=== PATIENT | male | born 1960 | race Caucasian/White ===

== ENCOUNTER → 2017-05-10 | Outpatient (CLI) | payer MEDICARE ==
[~2017-05-10] MED LIST: ACE3 PO; ACET-3017 PO; ACY200 PO; ACYC-50 PO; ACYC800T99 PO; ALP1 PO; ALPR-445 PO; ALPR-451 PO; ASMANEXPT EXT; ASPI-715 PO; ASPI81TA94 PO; AZIT-1 PO; CALC-1 PO; CALC500T42 PO; CALC600T59 PO; CEPH500C24 PO; CHOL100062 PO; CHOL200022 PO; CHOL4PAC14 PO; CHOL4PAC15 PO; CITA10SO7 PO; CLI150 PO; CLIN-60 PO; CYA1000 PO; CYAN100T25 PO; DARU800T PO; DIPH-1 PO; DON PO; DOXY-229 PO; EMTR1TAB11 PO; ERGO500029 PO; ERGO500037 PO; FENO130C6 PO; FENO145T PO; FLU100 PO; FLU45SYR25 IM ONLY; FLUC100T35 PO; GLUC-198 PO; HYOS-24 SL; LACT1CAP6 PO; LANI SC; LEV500P PO; LOPE-84 PO; LOPE-88 PO; LOPE2CAP88 PO; MEG40 PO; METF-409 PO; METR-160 PO; MOME45CR2 TP; MOME45OI2 TP; MULT-885 PO; NAPR-1043 PO; NIA500 PO; OMEP-153 PO; ONDA4TAB PO; POLY10DR20 OP; POTA-28 PO; PREN1TAB85 PO; PRO25 PO; PROM-110 PO; RITO100C7 PO; TACR100O6 TP; TRUPT PO; VAL500 PO; VANC1VIA12 PO; VARD10TA20 PO; ZOSTRIX TP; [UNRECOGNIZED DRUG - CODE] MC; [UNRECOGNIZED DRUG - CODE] MC; [UNRECOGNIZED DRUG - CODE] PO; [UNRECOGNIZED DRUG - CODE] PO; [UNRECOGNIZED DRUG - CODE] PO; [UNRECOGNIZED DRUG - CODE] PO; [UNRECOGNIZED DRUG - CODE] PO; [UNRECOGNIZED DRUG - CODE] PO; [UNRECOGNIZED DRUG - CODE] PO; [UNRECOGNIZED DRUG - CODE] PO; [UNRECOGNIZED DRUG - CODE] TD; [UNRECOGNIZED DRUG - CODE] TOP; [UNRECOGNIZED DRUG - OTHER] NS; [UNRECOGNIZED DRUG - OTHER] PO; megastrol PO
== END ==
LOC: LAB 15:00
PROVIDERS: ATTEND Internal Medicine
DX: A04.72 Enterocolitis due to Clostridium difficile, not specified as recurrent (principal)
CPT/HCPCS: 87324; 87449

== ENCOUNTER 2017-05-19 13:31 | Emergency (ER) | payer MEDICARE ==
[~2017-05-19] VITALS: Ht 175.3 cm; Wt 64.0 kg
[2017-05-19] MEDS ORDERED: IOPAMIDOL 76% 75 ML INFUS BTL 75 ML ONE (14:46)
--- NOTE | 2017-05-19 15:14 | RADIOLOGY IMAGING REPORT ---
FACILITY: [facility] [place] PATIENT NAME: Emil Alcantara : 1960 MR: [id number] V: [id number] EXAM DATE: ORDERING PHYSICIAN: CHACHO HENDERSON TECHNOLOGIST: Location: [facility] Patient: Emil Alcantara : 1960 Visit/Account:[id number] Date of Sevice: 05/19/2017 EXAMINATION: Chest 2 Views HISTORY: Jaundice. HIV positive. COMPARISON: 06/16/2012. FINDINGS: The lungs are clear. No focal consolidation or pleural fluid. No pneumothorax. Normal cardiomedias tinal silhouette, with normal heart size and pulmonary vascularity. Visualized osseous structures ar e unremarkable. IMPRESSION: Negative chest. Report Dictated By: Talat Wall MD at 05/19/2017 3:06 PM Report E-Signed By: Talat Wall MD at 05/19/2017 3:10 PM WSN:[id number]
--- NOTE | 2017-05-19 15:49 | RADIOLOGY IMAGING REPORT ---
FACILITY: [facility] PATIENT NAME: Emil Alcantara : 1960 MR: [id number] V: [id number] EXAM DATE: ORDERING PHYSICIAN: CHACHO HENDERSON TECHNOLOGIST: Location[place] [facility] [place] Patient: Emil Alcantara : 1960 Visit/Account:[id number] Date of Sevice: 05/19/2017 ABDOMEN/PELVIS WITH CONTRAST HISTORY: jaundice, HIV pos TECHNIQUE: Following administration of IV contrast contiguous axial images acquired through the abdom en/pelvis. Coronal and sagittal reformatting also performed. Dose Lowering Technique One of the following dose optimization techniques was utilized in the performance of this exam: Autom ated exposure control; adjustment of the mA and/or kV according to the patient's size; or use of an i terative reconstruction technique. Specific details can be referenced in the facility's radiology C T exam operational policy. CONTRAST: 75 mL Isovue-370 COMPARISON: July 22, 2013 FINDINGS: Visualized lung bases: In the lateral aspect right lower lobe on image one of series 5 there is an i ll-defined nodular area of airspace consolidation. This was not appreciated on the 2014 CT. In the posterior aspect of the right lower lobe on image 24 there is a 1.8 x 1 cm nodular area of a irspace consolidation also not appreciated on the prior study. . In the posterior aspect right lower lobe on image 39 there is a 1.3 x 0.9 cm focal area of nodular airspace consolidation also not appreciated on the prior study . The posterolateral right lower lobe on image 70 there is a small subtle area of subpleural consolidat ion. In the posterior aspect of the left lower lobe image 76 is a tiny subpleural area of consolidation All of these areas of consolidation abut the pleural margin Hepatobiliary: There is marked dilatation of the intra and extrahepatic biliary tree. The common he patic duct measures up to 1.8 cm., Bile duct measures 1.4 centers in diameter. The common bile duct becomes narrowed at the pancreatic head gallbladder is markedly distended distended Spleen: Negative. Adrenals: Negative. Pancreas: The pancreas appears atrophic. There is marked dilatation of the entire pancreatic duct m easuring up to 6.5 mm in diameter although becomes narrowed at the pancreatic head pancreatitis appea rs mildly heterogeneous Kidneys ureters or bladder: Bladder is mildly distended. Tiny subcentimeter hypodensity posterior as pect of the mid right kidney likely represents a cyst although is too small to characterize by CT Genitalia: There are coarse calcifications within the prostate GI: The stomach is markedly distended with particulate material. This could be related to a recent meal although clinical correlation needed to exclude a gastric outlet obstruction either functional o r mechanical although no obstructing lesion is seen Vessels/spaces/nodes: Negative. Bones/soft tissues: No aggressive appearing bone lesions are seen. There are mild spondylotic mays es lumbar spine Additional findings: None pertinent. IMPRESSION: There is severe intra and extrahepatic biliary ductal dilatation as described above including distent ion of the gallbladder. Pancreatic duct is also markedly dilated. Both the pancreatic and common bi le duct becomes narrowed at the pancreatic head. The pancreatic head appears heterogeneous. MRCP or ERCP is recommended for further evaluation. There are multiple focal ill-defined nodular areas of airspace consolidation abutting the pleural mar gins in the right lower lobe and a tiny area of consolidation in the left lower lobe. These were not present on the prior CT from 2013 and could represent an acute infectious/inflammatory process. The stomach is markedly distended with particulate material. This could be related to a recent meal although clinical correlation needed to exclude a gastric outlet obstruction either functional or mec hanical. Results were called to CHACHO HENDERSON at 05/19/2017 3:43 PM. Report Dictat d By: Eli Enriquez MD at 05/19/2017 3:17 PM Report E-Signed By: Eli Enriquez MD at 05/19/2017 3:44 PM WSN:[id number]
[2017-05-19 16:09] VITALS: BP 133/80
--- NOTE | 2017-05-19 16:32 | RADIOLOGY IMAGING REPORT ---
FACILITY: [facility] [place] PATIENT NAME: Emil Alcantara : 1960 MR: [id number] V: [id number] EXAM DATE: ORDERING PHYSICIAN: CHACHO HENDERSON TECHNOLOGIST: Location: [facility] Patient: Emil Alcantara : 1960 Visit/Account:[id number] Date of Sevice: 05/19/2017 LIVER HISTORY: Elevated liver enzymes. Jaundice. HIV-positive. COMPARISON: CT scan from same day FINDINGS: Gallbladder: Hydropic appearing gallbladder measuring 10.7 x 4.5 cm. in dimension. Small amount of de bris seen within the gallbladder. No wall thickening. No para cholecystic fluid collections. Liver: Dilated intrahepatic ducts comparable to the CT scan. Common bile duct measuring 15 mm proxima l. Common duct: Normal, 15 mm in its proximal aspect. mm diameter. Pancreas: Visualized portion the pancreas demonstrates no pancreatic mass lesion. Dilated intrahepati c ducts. Overall appearance the ultrasound comparable to the CT scan. Right kidney: 11 x 4.5 x 6.5 cm. No hydronephrosis. No cortical mass lesions. Resistive index of 0.70 Upper abdominal aorta and IVC: Patent. Ascites: None visualized. IMPRESSION: 1. Hydropic gallbladder with gallbladder debris. No acute cholecystitis change. 2. Dilated intrahepatic ducts and common bile duct. Overall appearance the ultrasound is comparable t o the CT scan. No additional information gleaned from ultrasound over CT scan. Report Dictated By: Francisco Clemens MD at 05/19/2017 4:16 PM Report E-Signed By: Francisco Clemens MD at 05/19/2017 4:28 PM WSN:[id number]
--- NOTE | 2017-05-19 16:41 | ER Report ---
History and Physical Time Seen By MD: 13:35 Hx. of Stated Complaint: PT SENT HERE FROM DR MARK'S OFFICE. HIGH BILI AND AST, ALT. PT RECENTLY TREATED FOR C-DIFF. HPI/ROS CHIEF COMPLAINT: Jaundice HISTORY OF PRESENT ILLNESS: Patient is a 56-year-old male who presents the ED with complaint of jaundice. He states that he was at work yesterday and one of his coworkers told him that he looked yellow. He states that he felt fine and was has not had any pain so he decided to wait pelvis morning to get this checked out. He states that he called his primary care office but his normal provider was gone today. He did get an appointment with Dr. Mark, who did evaluate him and did get some labs. It is noted that his bilirubin and liver enzymes were elevated. He has been completely pain-free. He has a history of HIV which is under good control. He states that his last CD4 count was above 600 and that his viral load was 0. He is on multiple medications/antivirals for his HIV. 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 He has not noted any fever. He has not had any nausea or vomiting. He has no history of any abdominal surgeries. He was told to come here by primary care for further evaluation. REVIEW OF SYSTEMS: Constitutional: No fever, no chills. Eyes: No discharge. ENT: No sore throat. Cardiovascular: No chest pain, no palpitations. Respiratory: No cough, no shortness of breath. Gastrointestinal: See history of present illness. Genitourinary: No hematuria. Musculoskeletal: No back pain. Skin: No rashes. Neurological: No headache. Allergies: Coded Allergies: diphenhydramine (Verified Allergy, Mild, hives, 05/19/17) Penicillins (Verified Allergy, Unknown, 05/19/17) lamivudine (Unverified Allergy, Unknown, HIVES, 05/19/17) shellfish derived (Unverified Allergy, Unknown, HIVES, 05/19/17) metformin (Unverified Adverse Reaction, Intermediate, GI DISTRESS, 05/19/17) Home Meds Active Scripts Diphenoxylate Hcl/Atropine (LOMOTIL TABLET) 1 Each Tablet, 1-2 TAB PO QID Y for DIARRHEA, #60 TAB 3 Refills 1 tablet po prn loose stool, maximum 8 tablets 24 hours Prov:KATELYNN MARK MD 05/19/17 Acyclovir (ACYCLOVIR) 400 Mg Tablet, 1 TAB PO BID, #120 TAB 5 Refills Prov:GUZMAN LOZA MD 05/10/17 Loperamide Hcl (LOPERAMIDE) 2 Mg Capsule, 2 CAP PO QDAY Y for diarrhea, #360 CAPSULE 2 Refills Prov:GUZMAN LOZA MD 04/26/17 Blood-Glucose Control, Low (BREEZE 2) 1 Each Each, 1 EACH MC DIRECTED, #100 10 Refills Use to test blood sugars once daily and up to TID as needed. Prov:GUZMAN LOZA MD 04/25/17 Lancets (MICROLET) 1 Each Each, 1 EACH MC DAILY, #100 3 Refills Used to check blood sugars daily. Prov:GUZMAN LOZA MD 04/19/17 Mometasone Furoate (MOMETASONE FUROATE) 45 Gm Oint...g., 1 ULISSES TP BID, #1 TUBE 3 Refills Prov:GUZMAN LOZA MD 04/13/17 Alprazolam (ALPRAZOLAM) 1 Mg Tablet, 1 TAB PO TID Y for anxiety, #90 TAB 1 Refill Prov:GUZMAN LOZA MD 03/29/17 Testosterone (TESTIM) 5 Gm Gel..gram., 1 ULISSES TD QDAY, #90 PACKET 2 Refills Prov:GUZMAN LOZA MD 11/18/16 Fenofibrate Nanocrystallized (FENOFIBRATE) 145 Mg Tablet, 1 TAB PO QDAY, #90 TAB 3 Refills Prov:GUZMAN LOZA MD 07/19/16 Cholecalciferol (Vitamin D3) (VITAMIN D) 10,000 Unit Capsule, 1 TAB PO QDAY, # 90 CAPSULE 4 Refills Prov:GUZMAN LOZA MD 06/01/16 Reported Medications Lactobacillus Combination No.4 (PROBIOTIC) 1 Each Capsule, 1 CAP PO QDAY, CAPSULE 05/27/15 Multivitamin (DAILY VITAMIN) 1 Each Tablet, 1 TAB PO QDAY 05/23/14 Cyanocobalamin (Vitamin B-12) (VITAMIN B-12) 1,000 Mcg Tablet, 1 TAB PO QDAY 05/23/14 Glucosa Cao 2KCL/Chondroitin Cao (GLUCOSAMINE & CHONDROITIN CAP) 1 Each Capsule, 1 CAP PO BID, CAPSULE 05/23/14 Aspirin (ASPIRIN) 81 Mg Tab.chew, 1 TAB PO QDAY, TAB.CHEW 05/23/14 Calcium Carbonate (CALTRATE 600) 600 Mg Tablet, 1 TAB PO BID 04/15/14 Darunavir Ethanolate (PREZISTA) 800 Mg Tablet, 1 TAB PO DAILY 11/23/13 Emtricitabine/Tenofovir (TRUVADA 200 MG-300 MG TABLET) 1 Each Tablet, 1 TAB PO QDAY 11/23/13 Ritonavir (NORVIR) 100 Mg Cap, 1 CAP PO DAILY, CAP 11/23/13 Vardenafil Hcl (LEVITRA) 10 Mg Tablet, 1 TAB PO QDAY Y for sexual activity, TAB 11/23/13 Discontinued Reported Medications Vancomycin Hcl 1 Gm Vial (VANCOMYCIN HCL) 1 Gm Vial, 125 MG PO DIRECTED, Liquid suspension: 125 mg qid X 14 d, bid X 7 d, qd X 7 d, qod then q 3rd day X 2-8 weeks 05/10/17 Discontinued Scripts Cholestyramine (With Sugar) (CHOLESTYRAMINE PACKET) 4 Gm Powd.pack, 1 PACKET PO BID, #60 PACKET 1 Refill Prov:GUZMAN LOZA MD 05/03/17 Cephalexin Monohydrate (CEPHALEXIN) 500 Mg Cap, 1 CAP PO BID, #4 CAP 0 Refills Prov:MARIPOSA BEAN DNP, [employer]-BC 05/13/17 Reviewed Nurses Notes: Yes Old Medical Records Reviewed: Yes Hx Smoking: No Smoking Status: Never Smoker Hx Substance Use Disorder: No Hx Alcohol Use: No Constitutional Vital Sign - Last 24 Hours 05/19/17 05/19/17 05/19/17 05/19/17 13:37 13:38 13:46 14:00 Temp 97.8 Pulse 49 52 Resp 16 B/P (MAP) 136/83 136/83 (100) 117/65 (82) Pulse Ox 96 97 O2 Delivery Room Air 05/19/17 05/19/17 05/19/17 05/19/17 14:01 14:16 14:30 14:31 Pulse 49 51 56 B/P (MAP) 136/76 (96) Pulse Ox 95 95 96 05/19/17 05/19/17 14:46 15:16 Pulse 55 58 Pulse Ox 95 99 Physical Exam General Appearance: The patient is alert, has no immediate need for airway protection and no signs of toxicity. She appears to be no acute distress. Eyes: Left IA is a prosthetic. Right eye reveals some scleral icterus. Pupils are round and reactive. ENT, Mouth: Mucous membranes are moist. Respiratory: There are no retractions, lungs are clear to auscultation. Cardiovascular: Regular rate and rhythm. Gastrointestinal: Abdomen is soft and non tender, no masses, bowel sounds normal all 4 quadrants. Skin: Jaundice is appreciated. Musculoskeletal: Neck is supple non tender. Extremities are nontender, nonswollen and have full range of motion. DIFFERENTIAL DIAGNOSIS: After history and physical exam differential diagnosis was considered for jaundice and HIV infection including infectious process, cholelithiasis, pancreatic/liver mass. Medical Decision Making Data Points Laboratory Hematology Test 05/19/17 11:32 05/19/17 14:52 Chemistry Test 05/19/17 11:32 05/19/17 14:52 Microbiology Microbiology Date/Time Source Procedure Growth Status 05/19/17 14:20 Blood Received ED Course/Re-evaluation ED Course Did obtain blood cultures, acid-fast bacteria blood cultures, acute hep panel, RUQ US and abd/pelvis CT. 05/19/2017 4:39:20 pm - distal imaging and labs with patient. It appears that he does have severe intra-and extrahepatic biliary duct dilation but no mass or stone is identified. The recommendation is for MRCP or ERCP. This patient with Dr. Virk, Hospitalist at [facility], who will accept the patient under her care. Decision to Disposition Date: May 19, 2017 Decision to Disposition Time: 16:40 Depart Departure Latest Vital Signs Vital Signs Date Time Temp Pulse Resp B/P (MAP) Pulse Ox O2 Delivery O2 Flow Rate FiO2 05/19/17 15:16 58 99 05/19/17 14:30 136/76 (96) 05/19/17 13:37 97.8 16 Room Air Impression: Primary Impression: Human immunodeficiency virus (HIV) disease Additional Impression: Jaundice Condition: Improved Disposition: XFER TO ACUTE CARE HOSPITAL Referrals: GUZMAN LOZA MD (PCP) MD Consult Note: Dr. Virk, Hospitalist at [facility] Dr. Razo, ED Problem Qualifiers CHACHO HENDERSON PA-C May 19, 2017 16:41
[2017-05-23] MEDS ORDERED: ALPR-451 PO (09:07)
== END 2017-05-19 17:10 | disposition short-term general hospital (02) ==
LOC: ER 13:37
DX: K83.8 Other specified diseases of biliary tract (principal); B20 Human immunodeficiency virus [HIV] disease; J17 Pneumonia in diseases classified elsewhere
CPT/HCPCS: 36415; 71046; 74177; 76705; 80074; 87040; 87116; 87471; 99285; Q9967

== ENCOUNTER → 2017-05-19 | Outpatient (CLI) | payer MEDICARE ==
[~2017-05-19] MED LIST changes: -FENO145T PO; +FENO145T36 PO; +SERT-184 PO
== END ==
LOC: AMB 17:02
PROVIDERS: ATTEND Nurse Practitioner
DX: K76.9 Liver disease, unspecified (principal); R17 Unspecified jaundice; Z21 Asymptomatic human immunodeficiency virus [HIV] infection status
CPT/HCPCS: A0425; A0428

== ENCOUNTER → 2017-05-19 | Outpatient (CLI) | payer MEDICARE ==
[~2017-05-19] MED LIST changes: -SERT-184 PO
[2017-05-19 11:51] LABS: PLATELET COUNT, AUTOMATED 239 K/uL (150-450)
== END ==
LOC: LAB 11:32
PROVIDERS: ATTEND Emergency Medicine
DX: B20 Human immunodeficiency virus [HIV] disease (principal); R17 Unspecified jaundice
CPT/HCPCS: 36415; 81001; 82040; 82150; 82247; 82310; 82374; 82435; 82565; 82947; 83690; 84075; 84132; 84155; 84295; 84450; 84460; 84520; 85025; 86140

== ENCOUNTER → 2017-05-25 | Outpatient (CLI) | payer MEDICARE ==
[~2017-05-25] MED LIST changes: +SERT-184 PO
[2017-05-25 16:14] LABS: PLATELET COUNT, AUTOMATED 233 K/uL (150-450)
== END ==
LOC: LAB 15:54
PROVIDERS: ATTEND Emergency Medicine
DX: R17 Unspecified jaundice (principal); R39.89 Other symptoms and signs involving the genitourinary system
CPT/HCPCS: 36415; 81001; 82040; 82247; 82310; 82374; 82435; 82565; 82947; 84075; 84132; 84155; 84295; 84450; 84460; 84520; 85025

== ENCOUNTER → 2017-07-18 | Outpatient (CLI) | payer MEDICARE ==
[~2017-07-18] MED LIST changes: +CHOL500050 PO; +CYAN25005 PO; +LIPA1CAP61 PO; +PACL6VIA IV; +PROC10TA4 PO; +SUMA20SP8 NS; +[UNRECOGNIZED DRUG - CODE] IV
== END ==
LOC: SPU 13:21
PROVIDERS: ATTEND Family Medicine
DX: B20 Human immunodeficiency virus [HIV] disease (principal)
CPT/HCPCS: 86361; 87536; 88184

== ENCOUNTER 2017-09-20 12:47 | Outpatient (RCR) | payer MEDICARE ==
[2017-06-27 12:36] VITALS: BP 100/60
[2017-06-27] MEDS: HEPARIN FLSH (PORT) 500 UN/5ML IVP PRN (14:57)
[2017-06-27] MEDS: NS(*) 0.9% 500 ML BAG 500 ML IV PRN (14:57)
[2017-06-27] MEDS: DEXAMETHASONE SOD PHOS 10MG/ML IVP PRN (15:23)
[2017-06-27] MEDS: PALONOSETRON 0.25 MG/5 ML VIAL IVP PRN (15:23)
[2017-06-27 17:33] VITALS: BP 99/65
--- NOTE | 2017-07-02 16:25 | ONCOLOGY FOLLOW UP NOTE ---
EVENT DATE: June 27, 2017 CHIEF COMPLAINT Mr. Alcantara is a pleasant 56-year-old gentleman and patient of Dr. Cotton and Dr. Tata Oseguera that presents to begin chemotherapy neoadjuvantly with Gemzar and Abraxane for pancreatic cancer that we are hopeful is resectable. HISTORY OF PRESENT ILLNESS Mr. Alcantara returns. Please see the notes by Dr. Oseguera from [facility] in [facility] for greater detail. I am meeting Mr. Alcanatra for the first time as he is beginning neoadjuvant chemotherapy. His bilirubin has improved nicely since the stent placement and we are able to give both drugs, albeit with a reduced dose of the Abraxane. The Gemzar is at an appropriate dose. He is ready to move forward with therapy. His PET scan was done recently and the lesions in the chest appear to be benign , and we will watch these closely. If they shrink considerably with chemotherapy that will raise concern that this is metastatic disease at presentation. If not then we are hopeful that we can shrink the disease and then pursue curative intense surgery. Plan to repeat imaging after two to four cycles to determine how he is responding. I reviewed his history with him in detail and answered all of his questions today. REVIEW OF SYSTEMS CONSTITUTIONAL: No fevers, chills. HEENT: No headache or vision changes. CARDIOVASCULAR: No chest pain, dyspnea on exertion or edema. RESPIRATORY: No shortness of breath, wheeze, cough. GASTROINTESTINAL: Abdominal pain controlled. Less distension. GENITOURINARY: No dysuria or hematuria. MUSCULOSKELETAL: Positive weakness. Some weight loss since his diagnosis. ENDOCRINE: No heat or cold intolerance. PSYCHIATRIC: Normal mood and affect. No anxiety or depression currently. SKIN: No concerning findings. HEMATOLOGIC/LYMPHATIC: No bruising or bleeding. The remainder of the 14-point review of systems is otherwise negative. PHYSICAL EXAMINATION VITAL SIGNS: Blood pressure 101/60, pulse 50, respiratory rate 16, temperature 96.8 Fahrenheit, oxygen saturation 94% on room air. Height 173.5, weight 59.7 kg. Pain 0/10, fatigue 0/10. GENERAL: In stable condition, resting comfortably in the chair. HEENT: Normocephalic, atraumatic. Thin and somewhat cachectic. CARDIOVASCULAR: Regular rate and rhythm. LUNGS: Clear. ABDOMEN: Soft. EXTREMITIES: No clubbing, cyanosis or significant edema. SKIN: No concerning findings. Remainder of physical exam otherwise unremarkable. IMPRESSION AND PLAN Mr. Alcantara is a pleasant 56-year-old gentleman with the followin. Pancreatic cancer. We are hopeful that this is resectable. We plan to pursue neoadjuvant chemotherapy with Gemzar and Abraxane with reduced dose of Abraxane due to the elevated bilirubin. I am very pleased that his bilirubin improved to the point where we can give a doublet of chemotherapy as opposed to single agent Gemzar. We will give two to four cycles then hopefully pursue surgery. He does have some what now appear to be benign lesions in the chest that we will follow closely as well. If these respond considerably then I would be much more concerned that they are metastatic. Discussed his case extensively with Dr. Oseguera, participated in his care conference in [place]. I answered all of his questions today. Billing: Return visit level 5. Total time 45 minutes, counseling time 25. MTDD
[2017-07-04 12:50] VITALS: BP 87/63
[2017-07-04] MEDS: NS(*) 0.9% 500 ML BAG 500 ML IV PRN (13:34)
[2017-07-04] MEDS: DEXAMETHASONE SOD PHOS 10MG/ML IVP PRN (13:34)
[2017-07-04] MEDS: HEPARIN FLSH (PORT) 500 UN/5ML IVP PRN (14:42)
[2017-07-04 14:45] VITALS: BP 96/54
[2017-07-11] MEDS: NS(*) 0.9% 500 ML BAG 500 ML IV PRN (13:40)
[2017-07-11 13:42] VITALS: BP 90/55
[2017-07-18 13:58] VITALS: BP 98/66
[2017-07-18 14:26] LABS: PLATELET COUNT, AUTOMATED 404 K/uL (150-450)
[2017-07-18] MEDS: DEXAMETHASONE SOD PHOS 10MG/ML IVP PRN (14:45)
[2017-07-18] MEDS: PALONOSETRON 0.25 MG/5 ML VIAL IVP PRN (14:45)
[2017-07-18] MEDS: NS(*) 0.9% 500 ML BAG 500 ML IV PRN (14:46)
[2017-07-18] MEDS: HEPARIN FLSH (PORT) 500 UN/5ML IVP PRN (16:05)
[2017-07-18 17:02] VITALS: BP 111/70
[2017-07-25 10:16] LABS: PLATELET COUNT, AUTOMATED 203 K/uL (150-450)
[2017-07-25 10:30] VITALS: BP 97/59
--- NOTE | 2017-07-26 20:14 | ONCOLOGY FOLLOW UP NOTE ---
EVENT DATE: July 25, 2017 CHIEF COMPLAINT/REASON FOR VISIT Mr. Alcantara is a pleasant 56-year-old gentleman with pancreatic cancer on neoadjuvant Gemzar and Abraxane, here for followup. The plan is to eventually get to resection after four cycles of therapy. HISTORY OF PRESENT ILLNESS Mr. Alcantara returns. Please see the notes from Dr. Jackson from the [facility] in [place] for greater detail. We started reduced dose Abraxane and Gemzar due to his need for HIV medication. He developed excessive myelosuppression with thrombocytopenia and we are now adjusting his therapy to every other week with a plan for eight doses or four cycles before reevaluation and hopeful consideration of surgery. Overall he is tolerating therapy well. No significant neuropathy thankfully. He does note grade 2 fatigue on days three and four with each dose, but then feels better a few days after that. No bleeding despite the thrombocytopenia, likely due to our dose adjustments and timing changes. I answered all of his questions today and we are ready to proceed with therapy every other week. REVIEW OF SYSTEMS CONSTITUTIONAL: No fevers, chills. HEENT: No headache, vision changes. CARDIOVASCULAR: No chest pain, dyspnea on exertion, edema. Positive general fatigue. RESPIRATORY: No shortness of breath, wheeze, cough. GASTROINTESTINAL: No nausea, vomiting, diarrhea or constipation. GENITOURINARY: No dysuria or hematuria. MUSCULOSKELETAL: No weakness, joint pain beyond the weakness and fatigue from chemotherapy. ENDOCRINE: No heat or cold intolerance. PSYCHIATRIC: Normal mood and affect. SKIN: No concerning findings. HEMATOLOGIC: No bruising or bleeding. LYMPHATIC: No new concerning lumps or bumps. Remainder of 14-point review of systems otherwise negative. PHYSICAL EXAM VITAL SIGNS: Blood pressure 97/59 which is normal for him. Pulse 54, respiratory rate 16, temperature 97.6 Fahrenheit, oxygen saturation 97% on room air. Weight 57.7 kg, which is down four pounds since one month ago. Discussed nutrition and increasing supplements while watching his diabetes. Pain is 7/10 , fatigue 7/10. GENERAL: Stable condition resting comfortably in the chair. ECOG performance status of 1. HEENT: Normocephalic, atraumatic. Thin and somewhat cachectic. CARDIOVASCULAR: Regular rate and rhythm. LUNGS: Clear. ABDOMEN: Soft. Diffuse mild tenderness across the mid section that has been present prior to treatment and is still present today. EXTREMITIES: No clubbing, cyanosis or significant edema. SKIN: No concerning findings today. Remainder of physical exam otherwise unremarkable. IMPRESSION AND PLAN Mr. Alcantara is a pleasant 56-year-old gentleman with the following: Pancreatic cancer. We are hopeful that this is resectable. We plan to pursue four cycles of neoadjuvant chemotherapy with Gemzar and Abraxane with reduced dose of Abraxane due to the elevated bilirubin. We are now using an every other week schedule due to thrombocytopenia. He does have what appear to be benign lesions in the chest that we will follow closely with imaging prior to surgery. If these resolve I would be concerned that they were metastatic, but we are hopeful that these are benign and that we can pursue curative intent surgery. If they resolve I would not restrict his ability to go to surgery as they could have been unrelated. They were not biopsied. We discussed the case previously and in extensive detail with Dr. Jackson, his primary oncologist. I answered all of his many questions today. Billing: Return visit level 4. Total time 30 minutes, counseling time 20. MTDD
[2017-08-01 13:17] VITALS: BP 97/62
[2017-08-01] MEDS: PALONOSETRON 0.25 MG/5 ML VIAL IVP PRN (13:43)
[2017-08-01] MEDS: DEXAMETHASONE SOD PHOS 10MG/ML IVP PRN (13:43)
[2017-08-01] MEDS: HEPARIN FLSH (PORT) 500 UN/5ML IVP PRN (13:48)
[2017-08-01] MEDS: NS(*) 0.9% 500 ML BAG 500 ML IV PRN (13:48)
[2017-08-01 16:16] VITALS: BP 130/79
[2017-08-09 09:31] LABS: PLATELET COUNT, AUTOMATED 230 K/uL (150-450)
[2017-08-15 12:58] VITALS: BP 104/79
[2017-08-15] MEDS: PALONOSETRON 0.25 MG/5 ML VIAL IVP PRN (14:10)
[2017-08-15] MEDS: DEXAMETHASONE SOD PHOS 10MG/ML IVP PRN (14:10)
[2017-08-15] MEDS: HEPARIN FLSH (PORT) 500 UN/5ML IVP PRN (14:11)
[2017-08-15] MEDS: NS(*) 0.9% 500 ML BAG 500 ML IV PRN (15:21)
[2017-08-17 15:07] VITALS: BP 100/55
--- NOTE | 2017-08-18 17:26 | ONCOLOGY FOLLOW UP NOTE ---
EVENT DATE: August 17, 2017 REASON FOR FOLLOWUP Pancreatic adenocarcinoma. INTERIM HISTORY Mr. Alcantara returns to clinic for a follow-up visit today. He began his third cycle of neoadjuvant gemcitabine and Abraxane on August 15. He reports that usually the first few days of his chemotherapy are rather fraught with fatigue, but he has not had any problems with new pain, fever, or nausea. His appetite tends to be fair, and he does not think that he has lost weight. He reports no shortness of breath, chest pain, or productive cough. He has had no skin changes. REVIEW OF SYSTEMS Review of systems is otherwise negative and all systems were reviewed. CURRENT MEDICATIONS 1. Bactrim. 2. Albuterol. 3. Alprazolam. 4. Sumatriptan. 5. Loperamide. 6. Vitamin B12. 7. Fenofibrate. 8. Compazine p.r.n. 9. Creon. 10. Acyclovir. 11. Testosterone. 12. Multivitamin daily. 13. Aspirin. 14. Calcium carbonate. 15. Prezista. 16. Truvada. ALLERGIES 1. PENICILLINS. 2. BENADRYL. 3. LAMIVUDINE. 4. METFORMIN. 5. He is also reportedly allergic to SHELLFISH. VITAL SIGNS Temperature 96.8, blood pressure 100/55, heart rate is 41, respirations 16, oxygen saturation is 96% on room air. Weight is 61.5 kg. PHYSICAL EXAM GENERAL: Patient is alert and oriented times three in no apparent distress sitting in the exam room chair. He is in good spirits, and quite interactive. He is thin. HEENT: Exam reveals anicteric sclerae and poor dentition. SKIN: Exam reveals no concerning rash or lesions. He has multiple tattoos. NEUROLOGIC: Exam is grossly nonfocal and his gait is normal. EXTREMITIES: Exam reveals no edema, clubbing or cyanosis. LABORATORY STUDIES Reviewed per the [employer] record. On August 15, his white blood cell count was 5200 with 1700 neutrophils, hemoglobin 13.9, hematocrit 40.9, platelet count 230 ,000. IMAGING None today. ASSESSMENT AND PLAN Pancreatic adenocarcinoma. I had a good visit with Alban today. Symptomatically , he seems to be doing pretty well. He just started his third cycle of neoadjuvant gemcitabine and Abraxane. We reviewed his labs. We discussed the prior decision to have him move to every other week. He had questions about how his cycles were numbered, and we reviewed this as well. We will plan on having him finish four cycles of neoadjuvant gemcitabine and Abraxane every other week, and he will then need to undergo re-imaging. I have asked him to follow up here in two weeks with Sharon, nurse practitioner, as well as Dr. Abad in one month. He agrees to do so. [facility]
[2017-08-22 10:30] VITALS: BP 108/74
[2017-08-22 10:46] LABS: PLATELET COUNT, AUTOMATED 224 K/uL (150-450)
[2017-08-25 09:53] VITALS: BP 111/71
--- NOTE | 2017-08-25 12:02 | Oncology Progress Note ---
History of Present Illness Evaluation Evaluation Date: Aug 25, 2017 Evaluation Time: 10:30 Primary Care Provider Primary Care Provider: Dr. Cotton Accompanied by Accompanied by: Self Last seen by : Woo 08/17/17 Chief Complaint Cheif Complaint: Urinary frequency, Burning Oncology History Oncology History: 06/2017 Pancreatic adenocarcioma Treatment Treatment: 07/01/2017 Initial Plan to pursue four cycles of neoadjuvant chemotherapy with Gemzar and Abraxane with reduced of Abraxane due to the elevated bilirubin Treatment re-adjusted to admin [place]/Abrax Q other week other due to Thrombocytopenia. On August 15 2017. Third cycle of neoadjuvant Gemcitabine and Abraxane . PREVENTIVE/HEALTH MAINTENANCE: - Colonoscopy done in 2010 - Last saw HIV provider Haley Pinto MD in mar 2017, next visit in september/2017 - PCP f/u q 3 Months. HPI HPI: Emil Levi is a very pleasant 57 year old male who has Pancreatic Adenocarcinoma. He reports feeling in his usual state of health except frequent urination, urgency, and burning for the last few nights. Patient is afebrile, and vitals stable. Recently received his third cycle of neoadjuvant gemcitabine and Abraxane on August 15. He reports that which besides fatigue first day after chemo, he has not have any complaints. He denies new pain, fever, or nausea, no hematuria, no vomiting He denies shortness of breath, chest pain, or productive cough. He has had no skin changes. Reports no changes in weight, no appetite and no bowel issues. Patient is on treatment Q 6months for his HIV. Living Conditions: lives alone Diagnostic Studies Laboratory: See [facility] Radiology: See [facility] Microbiology: See [facility] Pathology: See [facility] Allergies & Medications Allergies: Coded Allergies: diphenhydramine (Verified Allergy, Mild, hives, 05/19/17) Penicillins (Verified Allergy, Unknown, 05/19/17) lamivudine (Unverified Allergy, Unknown, HIVES, 05/19/17) shellfish derived (Unverified Allergy, Unknown, HIVES, 05/19/17) metformin (Unverified Adverse Reaction, Intermediate, GI DISTRESS, 05/19/17) Home Meds Active Scripts Testosterone (TESTIM) 5 Gm Gel..gram., 1 ULISSES TD QDAY, #90 PACKET 1 Refill Prov:GUZMAN COTTON MD 08/23/17 Albuterol Sulfate 90 Mcg/Act (PROAIR HFA 90 MCG/ACT) 8.5 Gm Hfa.aer.ad, 2 PUFF IH Q4-6H Y for shortness of breath, #1 INHALER 5 Refills Prov:GUZMAN COTTON MD 08/09/17 Alprazolam (ALPRAZOLAM) 1 Mg Tablet, 1 TAB PO TID Y for anxiety, #90 TAB 1 Refill Prov:GUZMAN COTTON MD 08/09/17 Loperamide Hcl (LOPERAMIDE) 2 Mg Capsule, 3 CAP PO QID Y for diarrhea, #360 CAPSULE 2 Refills Prov:LETICIA REZA PHARMD 07/20/17 Fenofibrate Nanocrystallized (FENOFIBRATE) 145 Mg Tablet, 1 TAB PO QDAY, #90 TAB 3 Refills Prov:GUZMAN COTTON MD 07/12/17 Acyclovir (ACYCLOVIR) 400 Mg Tablet, 1 TAB PO BID, #120 TAB 5 Refills Prov:GUZMAN COTTON MD 05/10/17 Blood-Glucose Control, Low (BREEZE 2) 1 Each Each, 1 EACH MC DIRECTED, #100 10 Refills Use to test blood sugars once daily and up to TID as needed. Prov:GUZMAN COTTON MD 04/25/17 Lancets (MICROLET) 1 Each Each, 1 EACH MC DAILY, #100 3 Refills Used to check blood sugars daily. Prov:GUZMAN COTTON MD 04/19/17 Reported Medications Sulfamethoxazole/Trimet 800-160 Mg Tab (BACTRIM DS TABLET) 1 Each Tablet, 1 TAB PO Q12H for 5 Days, TAB 08/10/17 Gemcitabine Hcl (GEMCITABINE HCL) 1 Gm Vial, 1 GM IV, VIAL 07/20/17 Paclitaxel (PACLITAXEL) 6 Mg/1 Ml Vial, 6 MG IV, VIAL 07/20/17 Sumatriptan (SUMATRIPTAN) 20 Mg [place], 1 SPR NS ONCE, SPRAY 07/20/17 Cyanocobalamin (Vitamin B-12) (B-12) 2,500 Mcg Tab.subl, 1 TAB PO QDAY 07/20/17 Prochlorperazine Maleate (Compazine) 10 Mg Tablet, 10 MG PO PRN Y for NAUSEA/ VOMITING 06/27/17 Lipase/Protease/Amylase (CREON DR 12,000 UNITS CAPSULE) 1 Each Capsule.dr, 2 CAP PO TID 06/15/17 Multivitamin (DAILY VITAMIN) 1 Each Tablet, 1 TAB PO QDAY 05/23/14 Aspirin (ASPIRIN) 81 Mg Tab.chew, 1 TAB PO QDAY, TAB.CHEW 05/23/14 Calcium Carbonate (CALTRATE 600) 600 Mg Tablet, 2 TAB PO BID 04/15/14 Darunavir Ethanolate (PREZISTA) 800 Mg Tablet, 1 TAB PO DAILY 11/23/13 Emtricitabine/Tenofovir (TRUVADA 200 MG-300 MG TABLET) 1 Each Tablet, 1 TAB PO QDAY 11/23/13 Review of Systems Constitution: Positive for Recent Infection (UTI) HEENT: No EARS: Tinnitus, No NOSE: Nasal Discharge, No THROAT: Sore Throat, No EYES: Dipolpia, No EARS: Hearing Problems, No NOSE: Epistaxis, No THROAT: Mouth Ulcers, No EYES: Vision Change, No OTHER Respiratory: No Cough, No Expectoration, No Hemoptysis, No Shortness of Breath , No OTHER Cardiovascular: No Chest Pain, No Orthopnea, No Edema, No Palpitations, No OTHER Gastrointestinal: No Nausea, No Vomitting, No Diarrehea, No Constipation, No Heart Burn, No Swallowing Difficulties, No Abdominal Pain, No Other Gentiourinary: Nocturia, Other (frequecny) Musculoskeletal: No Muscle Pain, No Joint Pain, No Bone Pain, No Other Hematological: Fatigue (minimal) Skin: No Skin Rash, No Lumps, No Erythema, No Dry Skin, No Moist Skin, No Other Psychiatric: No Anxiety, No Depression, No Other Vital Signs Vital Signs Temperature: 96.1 Pulse: 52 BP Systolic: 111 BP Diastolic: 71 Respiratory Rate: 16 O2 SAT: 98 O2 Delivery: Height (feet) Height (inches) 68.30 Weight lb: 141 Weight oz: Weight Kg (Thaddeus): Pain: 5 Physical Exam General: Looks Stable, Well Developed HEENT: HEAD:Atraumatic Neck: Supple, No Cervical Lymphadenopathy, No Subclavicular Lymphadopathy, No Thyromegaly, No Other Lungs: Clear to Auscultation Heart: Regular Rate and Rhythm Abdomen: Soft and Nontender Extremities: No Cyanosis, No Clubbing, No Edema, No Other Lymphatics: No Peripheral Lymphadenopathy, No Other Psychiatric: Mood appears normal Skin: No Skin Rashes, No Bruising, No Purpura, No Moist Desquamation, No Dry Desquamation, No Errythema, No Mild Errythema, No Moderate Errythema, No Severe Errythema, No Induration, No Other Breast: No No Masses, No No Nipple Discharge, No No Skin Changes, No Other Assessment EVENT DATE: August 25, 2017 REASON FOR FOLLOWUP Urinary frequency, burning INTERIM HISTORY Emil Levi is a very pleasant 57 year old male who has Pancreatic Adenocarcinoma. He reports feeling in his usual state of health except frequent urination, urgency, and burning for the last few nights. Patient is afebrile, and vitals stable. he returns to clinic for a follow-up visit today. Recently received his third cycle of neoadjuvant gemcitabine and Abraxane on August 15. he report that which besides fatigue first day after chemo, he has not have any complaints. He denies new pain, fever, or nausea,vomiting He denies shortness of breath, chest pain, or productive cough. He has had no skin changes. Reports no changes in weight, no appetite and no bowel issues. REVIEW OF SYSTEMS Review of systems is otherwise negative and all systems were reviewed. ASSESSMENT AND PLAN - Pancreatic Adenocarcinoma. Recently received 3rd cycle of gemcitabine and Abraxane on 08/15/17 with minimal fatigue, tolerating very well. He just started his third cycle of neoadjuvant . - He does have what appear to be benign lesions in the chest that we will follow closely with imaging prior to surgery. They were not biopsied. If these resolve I would be concerned that they were metastatic, but we are hopeful that these are benign and that we can pursue curative intent surgery. If they resolve I would not restrict his ability to go to surgery as they could have been unrelated. -Recurrent UTI; UA done, previously on Bactrim, patient to continue Bactrim as prescribed, and will closely monitor. Plan PLAN - Complete four cycles of neoadjuvant gemcitabine and Abraxane every other week , - Plan to undergo re-imaging after chemo - Continue Bactrim Po as prescribed for recurrent UTI - F/u with SALES PLANNING ANALYST in 2 weeks - F/u w/ MD Abad or Woo in one month approx. September 2017 - Contact Clinic with any issues or concerns. TIME SPENT: 15 minutes >50% incudes but not limited to discussion, counselling and co-ordination~ of care Billing level : Return visit 3. Plan discussed extensively with patient. All the questions answered today. Thank you for the opportunity to be involved in the care of . Maricruz DRE ALBA, ONC Aug 25, 2017 12:02
--- NOTE | 2017-08-25 14:15 | Oncology H&P ---
History of Present Illness Evaluation Evaluation Date: Aug 25, 2017 Evaluation Time: 10:30 Primary Care Provider Primary Care Provider: Dr. Cotton Accompanied by Accompanied by: Self Last seen by : Woo 08/17/17 Chief Complaint Cheif Complaint: Urinary frequency, Burning Oncology History Oncology History: 06/2017 Pancreatic adenocarcioma Treatment Treatment: 07/01/2017 Initial Plan to pursue four cycles of neoadjuvant chemotherapy with Gemzar and Abraxane with reduced of Abraxane due to the elevated bilirubin Treatment re-adjusted to admin [place]/Abrax Q other week other due to Thrombocytopenia PREVENTIVE/HEALTH MAINTENANCE: -Colonoscopy done in 2010 - Last saw HIV Haley tsang MD in mar 2017, nect visit in september/2017 -PCP f/u q 3 Months. On August 15 2017. Third cycle of neoadjuvant Gemcitabine and Abraxane . HPI HPI: Emil Levi is a very pleasant 57 year old male who has Pancreatic Adenocarcinoma. He reports feeling in his usual state of health except frequent urination, urgency, and burning for the last few nights. Patient is afebrile, and vitals stable. Recently received his third cycle of neoadjuvant gemcitabine and Abraxane on August 15. He reports that which besides fatigue first day after chemo, he has not have any complaints. He denies new pain, fever, or nausea, no hematuria, no vomiting He denies shortness of breath, chest pain, or productive cough. He has had no skin changes. Reports no changes in weight, no appetite and no bowel issues. Patient is on treatment Q 6months for his HIV. Living Conditions: lives alone Diagnostic Studies Result Diagram: 08/22/17 1035 08/22/17 1035 Laboratory: See [facility] Microbiology: See [facility] Pathology: See [facility] PM Patient History: FH: alcoholism BROTHER OR SISTER, Age:53 PATERNAL AUNT, PATERNAL GRANDMOTHER, FH: heart disease FATHER, , Age:71 FH: pancreatic cancer PATERNAL GRANDMOTHER, FH: spinal stenosis MOTHER, Age:78 FHx: congenital heart disease FATHER, , Age:71 Katja thyroiditis MOTHER, Age:78 Pulmonary fibrosis FATHER, , Age:71 Social/Occupational History Social History: Social History This is a 57 Yr old White male, he is S Single and has [] Children Hx Smoking: No Smoking Status: Never Smoker Exposure to Second Hand Smoke?: Yes (as a child) Allergies & Medications Allergies: Coded Allergies: diphenhydramine (Verified Allergy, Mild, hives, 05/19/17) Penicillins (Verified Allergy, Unknown, 05/19/17) lamivudine (Unverified Allergy, Unknown, HIVES, 05/19/17) shellfish derived (Unverified Allergy, Unknown, HIVES, 05/19/17) metformin (Unverified Adverse Reaction, Intermediate, GI DISTRESS, 05/19/17) Home Meds Active Scripts Testosterone (TESTIM) 5 Gm Gel..gram., 1 ULISSES TD QDAY, #90 PACKET 1 Refill Prov:GUZMAN COTTON MD 08/23/17 Albuterol Sulfate 90 Mcg/Act (PROAIR HFA 90 MCG/ACT) 8.5 Gm Hfa.aer.ad, 2 PUFF IH Q4-6H Y for shortness of breath, #1 INHALER 5 Refills Prov:GUZMAN COTTON MD 08/09/17 Alprazolam (ALPRAZOLAM) 1 Mg Tablet, 1 TAB PO TID Y for anxiety, #90 TAB 1 Refill Prov:GUZMAN COTTON MD 08/09/17 Loperamide Hcl (LOPERAMIDE) 2 Mg Capsule, 3 CAP PO QID Y for diarrhea, #360 CAPSULE 2 Refills Prov:LETICIA REZA PHARMD 07/20/17 Fenofibrate Nanocrystallized (FENOFIBRATE) 145 Mg Tablet, 1 TAB PO QDAY, #90 TAB 3 Refills Prov:GUZMAN COTTON MD 07/12/17 Acyclovir (ACYCLOVIR) 400 Mg Tablet, 1 TAB PO BID, #120 TAB 5 Refills Prov:GUZMAN COTTON MD 05/10/17 Blood-Glucose Control, Low (BREEZE 2) 1 Each Each, 1 EACH MC DIRECTED, #100 10 Refills Use to test blood sugars once daily and up to TID as needed. Prov:GUZMAN COTTON MD 04/25/17 Lancets (MICROLET) 1 Each Each, 1 EACH MC DAILY, #100 3 Refills Used to check blood sugars daily. Prov:GUZMAN COTTON MD 04/19/17 Reported Medications Sulfamethoxazole/Trimet 800-160 Mg Tab (BACTRIM DS TABLET) 1 Each Tablet, 1 TAB PO Q12H for 5 Days, TAB 08/10/17 Gemcitabine Hcl (GEMCITABINE HCL) 1 Gm Vial, 1 GM IV, VIAL 07/20/17 Paclitaxel (PACLITAXEL) 6 Mg/1 Ml Vial, 6 MG IV, VIAL 07/20/17 Sumatriptan (SUMATRIPTAN) 20 Mg [place], 1 SPR NS ONCE, SPRAY 07/20/17 Cyanocobalamin (Vitamin B-12) (B-12) 2,500 Mcg Tab.subl, 1 TAB PO QDAY 07/20/17 Prochlorperazine Maleate (Compazine) 10 Mg Tablet, 10 MG PO PRN Y for NAUSEA/ VOMITING 06/27/17 Lipase/Protease/Amylase (CREON DR 12,000 UNITS CAPSULE) 1 Each Capsule.dr, 2 CAP PO TID 06/15/17 Multivitamin (DAILY VITAMIN) 1 Each Tablet, 1 TAB PO QDAY 05/23/14 Aspirin (ASPIRIN) 81 Mg Tab.chew, 1 TAB PO QDAY, TAB.CHEW 05/23/14 Calcium Carbonate (CALTRATE 600) 600 Mg Tablet, 2 TAB PO BID 04/15/14 Darunavir Ethanolate (PREZISTA) 800 Mg Tablet, 1 TAB PO DAILY 11/23/13 Emtricitabine/Tenofovir (TRUVADA 200 MG-300 MG TABLET) 1 Each Tablet, 1 TAB PO QDAY 11/23/13 Review of Systems Constitution: Positive for Recent Infection (UTI) HEENT: No EARS: Tinnitus, No NOSE: Nasal Discharge, No THROAT: Sore Throat, No EYES: Dipolpia, No EARS: Hearing Problems, No NOSE: Epistaxis, No THROAT: Mouth Ulcers, No EYES: Vision Change, No OTHER Respiratory: No Cough, No Expectoration, No Hemoptysis, No Shortness of Breath , No OTHER Cardiovascular: No Chest Pain, No Orthopnea, No Edema, No Palpitations, No OTHER Gastrointestinal: No Nausea, No Vomitting, No Diarrehea, No Constipation, No Heart Burn, No Swallowing Difficulties, No Abdominal Pain, No Other Gentiourinary: Nocturia, Other (frequecny) Musculoskeletal: No Muscle Pain, No Joint Pain, No Bone Pain, No Other Hematological: Fatigue (minimal) Skin: No Skin Rash, No Lumps, No Erythema, No Dry Skin, No Moist Skin, No Other Psychiatric: No Anxiety, No Depression, No Other Vital Signs Vital Signs Temperature: 96.1 Pulse: 52 BP Systolic: 111 BP Diastolic: 71 Respiratory Rate: 16 O2 SAT: 98 O2 Delivery: Height (feet) Height (inches) 68.30 Weight lb: 141 Weight oz: Weight Kg (Thaddeus): Pain: 5 Physical Exam General: Looks Stable, Well Developed HEENT: HEAD:Atraumatic Neck: Supple, No Cervical Lymphadenopathy, No Subclavicular Lymphadopathy, No Thyromegaly, No Other Lungs: Clear to Auscultation Heart: Regular Rate and Rhythm Abdomen: Soft and Nontender Extremities: No Cyanosis, No Clubbing, No Edema, No Other Lymphatics: No Peripheral Lymphadenopathy, No Other Psychiatric: Mood appears normal Skin: No Skin Rashes, No Bruising, No Purpura, No Moist Desquamation, No Dry Desquamation, No Errythema, No Mild Errythema, No Moderate Errythema, No Severe Errythema, No Induration, No Other Breast: No No Masses, No No Nipple Discharge, No No Skin Changes, No Other DRE ALBA-Akila, ONC Aug 25, 2017 14:15
--- NOTE | 2017-08-25 15:25 | Oncology Progress Note ---
History of Present Illness Primary Care Provider Primary Care Provider: Dr. Cotton Accompanied by Accompanied by: Self Last seen by : Woo 08/17/17 Chief Complaint Cheif Complaint: Urinary frequency, Burning Oncology History Oncology History: 06/2017 Pancreatic adenocarcioma Treatment Treatment: 07/01/2017 Initial Plan to pursue four cycles of neoadjuvant chemotherapy with Gemzar and Abraxane with reduced of Abraxane due to the elevated bilirubin Treatment re-adjusted to admin [place]/Abrax Q other week other due to Thrombocytopenia PREVENTIVE/HEALTH MAINTENANCE: -Colonoscopy done in 2010 - Last saw HIV Haley tsang MD in mar 2017, nect visit in september/2017 -PCP f/u q 3 Months. On August 15 2017. Third cycle of neoadjuvant Gemcitabine and Abraxane . HPI HPI: Emil Levi is a very pleasant 57 year old male who has Pancreatic Adenocarcinoma. He reports feeling in his usual state of health except frequent urination, urgency, and burning for the last few nights. Patient is afebrile, and vitals stable. Recently received his third cycle of neoadjuvant gemcitabine and Abraxane on August 15. He reports that which besides fatigue first day after chemo, he has not have any complaints. He denies new pain, fever, or nausea, no hematuria, no vomiting He denies shortness of breath, chest pain, or productive cough. He has had no skin changes. Reports no changes in weight, no appetite and no bowel issues. Patient is on treatment Q 6months for his HIV. Living Conditions: lives alone Diagnostic Studies Result Diagram: 08/22/17 1035 08/22/17 1035 Laboratory: See [facility] Radiology: See [facility] Microbiology: See [facility] Pathology: See [facility] Allergies & Medications Allergies: Coded Allergies: diphenhydramine (Verified Allergy, Mild, hives, 05/19/17) Penicillins (Verified Allergy, Unknown, 05/19/17) lamivudine (Unverified Allergy, Unknown, HIVES, 05/19/17) shellfish derived (Unverified Allergy, Unknown, HIVES, 05/19/17) metformin (Unverified Adverse Reaction, Intermediate, GI DISTRESS, 05/19/17) Home Meds Active Scripts Testosterone (TESTIM) 5 Gm Gel..gram., 1 ULISSES TD QDAY, #90 PACKET 1 Refill Prov:GUZMAN COTTON MD 08/23/17 Albuterol Sulfate 90 Mcg/Act (PROAIR HFA 90 MCG/ACT) 8.5 Gm Hfa.aer.ad, 2 PUFF IH Q4-6H Y for shortness of breath, #1 INHALER 5 Refills Prov:GUZMAN COTTON MD 08/09/17 Alprazolam (ALPRAZOLAM) 1 Mg Tablet, 1 TAB PO TID Y for anxiety, #90 TAB 1 Refill Prov:GUZMAN COTTON MD 08/09/17 Loperamide Hcl (LOPERAMIDE) 2 Mg Capsule, 3 CAP PO QID Y for diarrhea, #360 CAPSULE 2 Refills Prov:LETICIA REZA PHARMD 07/20/17 Fenofibrate Nanocrystallized (FENOFIBRATE) 145 Mg Tablet, 1 TAB PO QDAY, #90 TAB 3 Refills Prov:GUZMAN COTTON MD 07/12/17 Acyclovir (ACYCLOVIR) 400 Mg Tablet, 1 TAB PO BID, #120 TAB 5 Refills Prov:GUZMAN COTTON MD 05/10/17 Blood-Glucose Control, Low (BREEZE 2) 1 Each Each, 1 EACH MC DIRECTED, #100 10 Refills Use to test blood sugars once daily and up to TID as needed. Prov:GUZMAN COTTON MD 04/25/17 Lancets (MICROLET) 1 Each Each, 1 EACH MC DAILY, #100 3 Refills Used to check blood sugars daily. Prov:GUZMAN COTTON MD 04/19/17 Reported Medications Sulfamethoxazole/Trimet 800-160 Mg Tab (BACTRIM DS TABLET) 1 Each Tablet, 1 TAB PO Q12H for 5 Days, TAB 08/10/17 Gemcitabine Hcl (GEMCITABINE HCL) 1 Gm Vial, 1 GM IV, VIAL 07/20/17 Paclitaxel (PACLITAXEL) 6 Mg/1 Ml Vial, 6 MG IV, VIAL 07/20/17 Sumatriptan (SUMATRIPTAN) 20 Mg [place], 1 SPR NS ONCE, SPRAY 07/20/17 Cyanocobalamin (Vitamin B-12) (B-12) 2,500 Mcg Tab.subl, 1 TAB PO QDAY 07/20/17 Prochlorperazine Maleate (Compazine) 10 Mg Tablet, 10 MG PO PRN Y for NAUSEA/ VOMITING 06/27/17 Lipase/Protease/Amylase (CREON DR 12,000 UNITS CAPSULE) 1 Each Capsule.dr, 2 CAP PO TID 06/15/17 Multivitamin (DAILY VITAMIN) 1 Each Tablet, 1 TAB PO QDAY 05/23/14 Aspirin (ASPIRIN) 81 Mg Tab.chew, 1 TAB PO QDAY, TAB.CHEW 05/23/14 Calcium Carbonate (CALTRATE 600) 600 Mg Tablet, 2 TAB PO BID 04/15/14 Darunavir Ethanolate (PREZISTA) 800 Mg Tablet, 1 TAB PO DAILY 11/23/13 Emtricitabine/Tenofovir (TRUVADA 200 MG-300 MG TABLET) 1 Each Tablet, 1 TAB PO QDAY 11/23/13 Review of Systems Constitution: Positive for Recent Infection (UTI) HEENT: No EARS: Tinnitus, No NOSE: Nasal Discharge, No THROAT: Sore Throat, No EYES: Dipolpia, No EARS: Hearing Problems, No NOSE: Epistaxis, No THROAT: Mouth Ulcers, No EYES: Vision Change, No OTHER Respiratory: No Cough, No Expectoration, No Hemoptysis, No Shortness of Breath , No OTHER Cardiovascular: No Chest Pain, No Orthopnea, No Edema, No Palpitations, No OTHER Gastrointestinal: No Nausea, No Vomitting, No Diarrehea, No Constipation, No Heart Burn, No Swallowing Difficulties, No Abdominal Pain, No Other Gentiourinary: Nocturia, Other (frequecny) Musculoskeletal: No Muscle Pain, No Joint Pain, No Bone Pain, No Other Hematological: Fatigue (minimal) Skin: No Skin Rash, No Lumps, No Erythema, No Dry Skin, No Moist Skin, No Other Psychiatric: No Anxiety, No Depression, No Other Vital Signs Vital Signs Temperature: 96.1 Pulse: 52 BP Systolic: 111 BP Diastolic: 71 Respiratory Rate: 16 O2 SAT: 98 O2 Delivery: Height (feet) Height (inches) 68.30 Weight lb: 141 Weight oz: Weight Kg (Thaddeus): Pain: 5 Physical Exam General: Looks Stable, Well Developed HEENT: HEAD:Atraumatic Neck: Supple, No Cervical Lymphadenopathy, No Subclavicular Lymphadopathy, No Thyromegaly, No Other Lungs: Clear to Auscultation Heart: Regular Rate and Rhythm Abdomen: Soft and Nontender Extremities: No Cyanosis, No Clubbing, No Edema, No Other Lymphatics: No Peripheral Lymphadenopathy, No Other Psychiatric: Mood appears normal Skin: No Skin Rashes, No Bruising, No Purpura, No Moist Desquamation, No Dry Desquamation, No Errythema, No Mild Errythema, No Moderate Errythema, No Severe Errythema, No Induration, No Other Breast: No No Masses, No No Nipple Discharge, No No Skin Changes, No Other Plan PLAN - Complete four cycles of neoadjuvant gemcitabine and Abraxane every other week , - Plan to undergo re-imaging after chemo - Continue Bactrim PO as prescribed for recurrent UTI - F/u with [employer] in 2 weeks - F/u w/ MD Abad or Woo in one month approx. September 2017 TIME SPENT: 15 minutes >50% includes but not limited to discussion, counselling and co-ordination~ of care Billing level : Return visit 3. Plan discussed extensively with patient. All the questions answered today. Thank you for the opportunity to be involved in the care of Mr. Alcantara DRE ALBA, ONC Aug 25, 2017 15:25
[2017-08-29 13:08] VITALS: BP 125/74
[2017-08-29] MEDS: PALONOSETRON 0.25 MG/5 ML VIAL IVP PRN (13:52)
[2017-08-29] MEDS: DEXAMETHASONE SOD PHOS 10MG/ML IVP PRN (13:52)
[2017-08-29] MEDS: HEPARIN FLSH (PORT) 500 UN/5ML IVP PRN (14:28)
[2017-08-29] MEDS: NS(*) 0.9% 500 ML BAG 500 ML IV PRN (14:28)
[2017-09-05 10:39] VITALS: BP 110/69
[2017-09-05 10:49] LABS: PLATELET COUNT, AUTOMATED 265 K/uL (150-450)
[2017-09-12 13:02] VITALS: BP 112/72
[2017-09-12] MEDS: PALONOSETRON 0.25 MG/5 ML VIAL IVP PRN (13:50)
[2017-09-12] MEDS: DEXAMETHASONE SOD PHOS 10MG/ML IVP PRN (13:51)
[2017-09-12] MEDS: NS(*) 0.9% 500 ML BAG 500 ML IV PRN (13:52)
[2017-09-12] MEDS: HEPARIN FLSH (PORT) 500 UN/5ML IVP PRN (15:56)
--- NOTE | 2017-09-12 16:44 | Oncology Progress Note ---
History of Present Illness Evaluation Evaluation Date: Sep 12, 2017 Evaluation Time: 13:30 Primary Care Provider Primary Care Provider: Dr. Cotton Accompanied by Accompanied by: Sister, Ms. España Last seen by : Woo 08/17/17 Chief Complaint Chief Complaint Cycle #4 of Gemzar and Abraxane for Pancreatic Adenocarcinoma Oncology History Oncology History Pancreatic Adenocarcinoma Dx: 06/2017. Treatment Treatment -07/01/2017 Initial Plan to pursue four cycles of neoadjuvant chemotherapy with Gemzar and Abraxane with reduced of Abraxane due to the elevated bilirubin - Treatment re-adjusted to admin [place]/Abrax Q other week other due to his need for HIV medication and development of Thrombocytopenia. Now adjusting his therapy to every other week with a plan for eight doses or four cycles before reevaluation and hopeful consideration of surgery. - On August 15 2017. Third cycle of neoadjuvant Gemcitabine and Abraxane . -09/12/2017 Cycle#4 Gemcitabine and Abraxane PREVENTIVE/HEALTH MAINTENANCE: - Colonoscopy done in 2010 - Last saw HIV provider Haley Pinto MD in Mar 2017, next visit in september/2017 to include viralload reports - PCP f/u q 3 Months. HPI HPI Emil Levi is a very pleasant 57 year old male who has Pancreatic Adenocarcinoma Dx: 06/2017. Patient's presents to the cancer center today accompanied by his sister Patria, for his cycle #4 of Gemzar and Abraxane. Patient is hemodynamically stable. Tolerating treatment with minor toxicities at this stage. He reports that besides minimal fatigue his first day of chemotherapy and abdominal cramps that starts 2 days after the chemotherapy administration, which last approximately 24 hours he is in his usual state of health. . Symptoms are alleviated by him moving around to alleviate the cramps and he does take Compazine which helps with abdominal pain. Other than that he's been feeling very good and he is UTI symptoms have resolved, he denies any chill, fevers, night sweats, cardiac type chest pain, no SOB, he has no skin changes, he reports that he has pleasantly gained approximately 5 pounds in the last couple of weeks , significant improvement in his appetite. He reports no changes in his bowel or bladder pattern. Patient is on treatment Q 6months for his HIV with labs including viral load [id number]. Living Conditions Lives with is mother in the basement, his sister Ms. España, is here today and she informs me that she just relocated temporary and that she will be additional support system while he has to undergo treatment including surgery. Diagnostic Studies Result Diagram: 09/12/17 1250 09/12/17 1250 PMH Patient History: FH: alcoholism BROTHER OR SISTER, Age:53 PATERNAL AUNT, PATERNAL GRANDMOTHER, FH: heart disease FATHER, , Age:71 FH: pancreatic cancer PATERNAL GRANDMOTHER, FH: spinal stenosis MOTHER, Age:78 FHx: congenital heart disease FATHER, , Age:71 Katja thyroiditis MOTHER, Age:78 Pulmonary fibrosis FATHER, , Age:71 Social/Occupational History Social History: Social History This is a 57 Yr old White male, he is S Single and has [] Children Hx Smoking: No Smoking Status: Never Smoker Exposure to Second Hand Smoke?: Yes (as a child) Allergies & Medications Allergies: Coded Allergies: diphenhydramine (Verified Allergy, Mild, hives, 05/19/17) Penicillins (Verified Allergy, Unknown, 05/19/17) lamivudine (Unverified Allergy, Unknown, HIVES, 05/19/17) shellfish derived (Unverified Allergy, Unknown, HIVES, 05/19/17) metformin (Unverified Adverse Reaction, Intermediate, GI DISTRESS, 05/19/17) Home Meds Active Scripts Cholecalciferol (Vitamin D3) (VITAMIN D) 10,000 Unit Capsule, 1 CAP PO QDAY, # 90 CAPSULE 3 Refills Prov:GUZMAN COTTON MD 08/29/17 Testosterone (TESTIM) 5 Gm Gel..gram., 1 ULISSES TD QDAY, #90 PACKET 1 Refill Prov:GUZMAN COTTON MD 08/23/17 Albuterol Sulfate 90 Mcg/Act (PROAIR HFA 90 MCG/ACT) 8.5 Gm Hfa.aer.ad, 2 PUFF IH Q4-6H Y for shortness of breath, #1 INHALER 5 Refills Prov:GUZMAN COTTON MD 08/09/17 Alprazolam (ALPRAZOLAM) 1 Mg Tablet, 1 TAB PO TID Y for anxiety, #90 TAB 1 Refill Prov:GUZMAN COTTON MD 08/09/17 Loperamide Hcl (LOPERAMIDE) 2 Mg Capsule, 3 CAP PO QID Y for diarrhea, #360 CAPSULE 2 Refills Prov:LETICIA REZA PHARMD 07/20/17 Fenofibrate Nanocrystallized (FENOFIBRATE) 145 Mg Tablet, 1 TAB PO QDAY, #90 TAB 3 Refills Prov:GUZMAN COTTON MD 07/12/17 Acyclovir (ACYCLOVIR) 400 Mg Tablet, 1 TAB PO BID, #120 TAB 5 Refills Prov:GUZMAN COTTON MD 05/10/17 Blood-Glucose Control, Low (BREEZE 2) 1 Each Each, 1 EACH MC DIRECTED, #100 10 Refills Use to test blood sugars once daily and up to TID as needed. Prov:GUZMAN COTTON MD 04/25/17 Lancets (MICROLET) 1 Each Each, 1 EACH MC DAILY, #100 3 Refills Used to check blood sugars daily. Prov:GUZMAN COTTON MD 04/19/17 Reported Medications Sulfamethoxazole/Trimet 800-160 Mg Tab (BACTRIM DS TABLET) 1 Each Tablet, 1 TAB PO Q12H for 5 Days, TAB 08/10/17 Gemcitabine Hcl (GEMCITABINE HCL) 1 Gm Vial, 1 GM IV, VIAL 07/20/17 Paclitaxel (PACLITAXEL) 6 Mg/1 Ml Vial, 6 MG IV, VIAL 07/20/17 Sumatriptan (SUMATRIPTAN) 20 Mg [place], 1 SPR NS ONCE, SPRAY 07/20/17 Cyanocobalamin (Vitamin B-12) (B-12) 2,500 Mcg Tab.subl, 1 TAB PO QDAY 07/20/17 Prochlorperazine Maleate (Compazine) 10 Mg Tablet, 10 MG PO PRN Y for NAUSEA/ VOMITING 06/27/17 Lipase/Protease/Amylase (CREON DR 12,000 UNITS CAPSULE) 1 Each Capsule.dr, 2 CAP PO TID 06/15/17 Multivitamin (DAILY VITAMIN) 1 Each Tablet, 1 TAB PO QDAY 05/23/14 Aspirin (ASPIRIN) 81 Mg Tab.chew, 1 TAB PO QDAY, TAB.CHEW 05/23/14 Calcium Carbonate (CALTRATE 600) 600 Mg Tablet, 2 TAB PO BID 04/15/14 Darunavir Ethanolate (PREZISTA) 800 Mg Tablet, 1 TAB PO DAILY 11/23/13 Emtricitabine/Tenofovir (TRUVADA 200 MG-300 MG TABLET) 1 Each Tablet, 1 TAB PO QDAY 11/23/13 Review of Systems Constitution: Positive for Recent Infection (UTI) HEENT: No EARS: Tinnitus, No NOSE: Nasal Discharge, No THROAT: Sore Throat, No EYES: Dipolpia, No EARS: Hearing Problems, No NOSE: Epistaxis, No THROAT: Mouth Ulcers, No EYES: Vision Change, No OTHER Respiratory: No Cough, No Expectoration, No Hemoptysis, No Shortness of Breath , No OTHER Cardiovascular: No Chest Pain, No Orthopnea, No Edema, No Palpitations, No OTHER Gastrointestinal: No Nausea, No Vomitting, No Diarrehea, No Constipation, No Heart Burn, No Swallowing Difficulties, No Abdominal Pain, No Other Gentiourinary: Nocturia (Resolved) Musculoskeletal: No Muscle Pain, No Joint Pain, No Bone Pain, No Other Hematological: Fatigue (minimal) Skin: No Skin Rash, No Lumps, No Erythema, No Dry Skin, No Moist Skin, No Other Psychiatric: No Anxiety, No Depression, No Other Vital Signs Vital Signs Temperature: 98.0 Pulse: 66 BP Systolic: 112 BP Diastolic: 72 Respiratory Rate: 16 O2 SAT: 95 O2 Delivery: Height (feet) Height (inches) 68.30 Weight lb: 141 Weight oz: Weight Kg (Thaddeus): Pain: 0 Physical Exam General: Looks Stable, Well Developed HEENT: HEAD:Atraumatic Neck: Supple, No Cervical Lymphadenopathy, No Subclavicular Lymphadopathy, No Thyromegaly, No Other Lungs: Clear to Auscultation Heart: Regular Rate and Rhythm Abdomen: Soft and Nontender Extremities: No Cyanosis, No Clubbing, No Edema, No Other Lymphatics: No Peripheral Lymphadenopathy, No Other Psychiatric: Mood appears normal Skin: No Skin Rashes, No Bruising, No Purpura, No Moist Desquamation, No Dry Desquamation, No Errythema, No Mild Errythema, No Moderate Errythema, No Severe Errythema, No Induration, No Other Breast: No No Masses, No No Nipple Discharge, No No Skin Changes, No Other Assessment and Plan Assessment and Plan Emil Levi is a very pleasant 57 year old male who has Pancreatic Adenocarcinoma Dx: 06/2017. Patient's presents to the cancer center today accompanied by his sister Patria, for his cycle #4 of Gemzar and Abraxane. Patient is hemodynamically stable. Tolerating treatment with minor toxicities at this stage. 1. Pancreatic Adenocarcinoma. Recently received 3rd cycle of gemcitabine and Abraxane on 08/15/17 with minimal fatigue, tolerating very well. He just started his third cycle of neoadjuvant . - He does have what appear to be benign lesions in the chest that we will follow closely with imaging prior to surgery. They were not biopsied. If these resolve we would be concerned that they were metastatic, but we are hopeful that these are benign and that we can pursue curative intent surgery. If they resolve we would not restrict his ability to go to surgery as they could have been unrelated. 2. Recurrent UTI; UA done, previously on Bactrim, patient to continue Bactrim as prescribed, and will continue to monitor closely. PLAN -Will discuss with Dr. Portillo on the status and progression of treatment and status of surgery - Administer cycle#4 of neoadjuvant gemcitabine and Abraxane today 09/12/17, - Plan to undergo re-imaging after chemo, per patient CT scheduled for 09/27/17 - Continue Bactrim PO as prescribed for recurrent UTI/PCP ppfx - F/u with [employer] in 2 weeks - F/u w/ MD Abad or Woo in September [address] images and Visit with Dr. Figueroa, and Surgeon Dr. Klever Montaño MD at [facility] [phone] ( info provided by patient) - Patient to bring reports of HIV labs including viral load - Patient to f/u with Dr. Figueroa, and Surgeon Dr. Klever Montaño MD at [facility] [phone] images report - Contact Clinic with any issues or concerns. TIME SPENT: 25 minutes >20 minutes includes but not limited to discussion, counselling and co-ordination~ of care. Plan discussed extensively with patient. All the questions answered today. Thank you for the opportunity to be involved in the care of Emil Levi. Billing level : Return visit 4. CC Copies to: SIVA PORTILLO MD, SARA FNP-C, ONC Sep 12, 2017 16:44
[2017-09-19 10:45] VITALS: BP 106/70
[2017-09-19 11:11] LABS: PLATELET COUNT, AUTOMATED 237 K/uL (150-450)
[~2017-09-20] VITALS: Ht 173.5 cm; Wt 63.0 kg
[~2017-09-20 12:47] MED LIST changes: +ALBU8.5H IH; +ALTEPLASE RECOMB 2 MG VIAL IVP PRN; +DEXTROSE 5%(*) 100 ML BAG 100 ML IVPB PRN; +FLEXIBLE CONTAINER IV ONE; +GEMCITABINE IVPB ONE; +LIDOCAINE/SOD BICARB 8.4% SYR ID PRN; +LOR1 PO; +NS 0.9% IVPB ONE; +NS(*) 0.9% 100 ML BAG 100 ML IVPB PRN; +SULF-198 PO; +WATER FOR INJ,STERILE 20 ML IVP PRN; +[UNRECOGNIZED DRUG - OTHER] IV ONE; +[UNRECOGNIZED DRUG - OTHER] IVPB ONE
[2017-09-20 12:54] VITALS: BP 113/65
--- NOTE | 2017-09-21 14:44 | ONCOLOGY FOLLOW UP NOTE ---
EVENT DATE: September 20, 2017 CHIEF COMPLAINT/REASON FOR VISIT Mr. Alcantara is a very pleasant, 57-year-old gentleman with pancreatic cancer, on neoadjuvant Gemzar and Abraxane, having received seven of eight planned doses over four cycles, here for followup. HISTORY OF PRESENT ILLNESS Mr. Alcantara returns. Please see the notes from Dr. Manuel Berkowitz from the [facility] in [place] for greater detail. We started a reduced dose of Abraxane and Gemzar due to his need for HIV medication. He developed a significant amount of suppression with thrombocytopenia, and we adjusted his doses to every other week with a plan for eight doses. We have had delays due to the myelosuppression. No significant neuropathy, thankfully. He does note grade 2 fatigue with his treatment, but this is slightly better with the dose adjustments. He is due to follow back up with his surgeon in [place] on the 26 of September, so we plan to stop at this time to allow for recovery and surgery which is the essential part of his curative treatment. REVIEW OF SYSTEMS (Please cut and paste review of systems from my note on July 25, 2017.) PHYSICAL EXAMINATION VITAL SIGNS: Blood pressure 113/65, pulse 58, respiratory rate 16, temperature 97 Fahrenheit, oxygen saturation 94% on room air. Weight 63 kg. PAIN: Zero/10 FATIGUE: 7/10 GENERAL: Stable condition, resting comfortably in the chair. HEENT: Normocephalic, atraumatic. ABDOMEN: Soft and nontender. He had diffuse tenderness cross the mid section at diagnosis, which is no longer present, which is encouraging. SKIN: No concerning findings. Multiple tattoos. Remainder of physical exam otherwise deferred to amount of time spent in counseling and coordination of care. IMPRESSION (Import.) PLAN Mr. Alcantara is a pleasant, 57-year-old gentleman with the following: Pancreatic cancer, borderline resectable. We plan to pursue four cycles of neoadjuvant chemotherapy with Gemzar and Abraxane with reduced dose of Abraxane due to the elevated bilirubin. We had to pursue an every other week schedule due to significant thrombocytopenia from this treatment. We have imaging planned for the 26 of September, followed by an appointment with the surgeon. I anticipate that the lesions in the lung are benign and related to his HIV, but we will assess them with the upcoming scan. In my opinion, if they do not resolve, I would still not restrict his ability to go to surgery as they could have been unrelated. These have never been biopsied in the lung. I answered all of his many questions today. Billing Return visit level 4. Total time 30 minutes, counseling time 20. High risk, high complexity. NIMISHAD
== END 2017-09-22 ==
LOC: ONC 12:47
PROVIDERS: ATTEND Specialist
DX: Z51.11 Encounter for antineoplastic chemotherapy (principal); C25.9 Malignant neoplasm of pancreas, unspecified; D69.6 Thrombocytopenia, unspecified; R35.0 Frequency of micturition; R30.9 Painful micturition, unspecified
CPT/HCPCS: 36415; 81001; 85025; 85027; 86301; 86361; 87077; 87088; 87186; 87536; 88184; 96367; 96375; 96413; 96417; G0463; J1100; J1642; J2469; J7040; J7050; J9201; J9264; 82040; 82247; 82310; 82374; 82435; 82565; 82947; 84075; 84132; 84155; 84295; 84450; 84460; 84520; 99212

== ENCOUNTER 2017-10-24 11:15 | Outpatient (RCR) | payer MEDICARE ==
--- NOTE | 2017-08-02 09:39 | PT INITIAL EVALUATION ---
MEDICAL DIAGNOSIS: Pancreatic Cancer TREATMENT DIAGNOSIS: Pancreatic Cancer DATE OF ONSET: 08/01/17 SUBJECTIVE: Andrea Stein" is a 56 year-old male presenting to oncology rehab and physical therapy following diagnosis of pancreatic cancer. Pt started a chemo regimen of Gemzar and Abraxane on July 18 and is now on cycle 4. Pt is to continue with treatment until he qualifies for Whipple procedure. He also will have continual scans to check on possible metastasis to the lungs. Pt currently reports that he is fatigued with treatment and that he has been less active and is no-longer participating in [employer] like he used to. Pt has a history of neuropathy since 1993 as well a history of being HIV positive. 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 Pt is also recently recovering from a UTI. Pt currently reports no pain at this time, but occasionally has low back pain. REHAB PROBLEM LIST: Decreased Strength Decreased Endurance Decreased Balance Decreased Function Decreased ADL's Decreased Mobility PREVIOUS MEDICAL HISTORY: See EMR OCCUPATION: On disability OBJECTIVE: Posture: Pt has B rounded forward shoulders. ROM: UE ROM WFL Strength: LE MMT: Hip: flexion: B 4+/5, Ext: B 4-/5, Abd: B 4/5, Add: B 4+/5. Knee: flexion: L 4+/5, R 5/5, Ext: B 5/5. Ankle: PF: B 4+/5, DF: B 5/5 Sensation: Pt reports no increase in neuropathy with treatment but has [facility] neuropathy in fingers and toes. Special Tests: FACT-G Eval: PWB: , SWB: , EWB: 09/04, FWB: 12/09, Total Score: 57/108. Mobility: ECOG Performance Status: Grade 2 Balance: 4 stage balance: SLS: 25 seconds on L, 15 seconds on R ASSESSMENT: Pt shows signs and symptoms consistent with generalized fatigue and weakness secondary to recent diagnosis and treatment of pancreatic cancer as well as decreased activity with recent infection and history of HIV. Physical therapy is indicated for this patient to address the above listed deficits as well as for improved functional well-being with ADLs with ongoing oncological treatment. Referral is also indicated for this patient for [employer] to address deficits in emotional well-being as well as Dietary to address recent increase in weight loss with ongoing treatment. Short Term Goals In 2 MO pt will decrease lumbar pain to 0/10 most days of the week for improved function with ADL's. In 2 MO pt will increase ECOG performance status and return to recreational exercise for improved function with ADL's and improved oncological outcomes. In 4 MO pt will improve FACT-G to > 60/108 for improved function with ADL's and general well-being. Patient's Goals Return to recreational exercise, improve function, decrease lumbar pain. PLAN: Patient to be seen for Manual Therapy/STM/MET Strengthening/condition Ice/Heat Range of Motion Spinal Stabilization Ultrasound Stretching Iontophoresis Neuromuscular Re-ed Closed Chain Program Electrical Stim Posture/Body mechanics Gait Trg/Balance Trg Biofeedback Home Exercise Program Mech./Manual Traction Therapeutic Activities Pelvic Floor 1x/Week for 4 Months If you have any questions, comments, or concerns about this report or plan, please contact me at . Thank you, Porsche Pinto, PT, DPT, CLT KAREN
--- NOTE | 2017-08-29 13:26 | Oncology Note ---
Patient seen and examined at the infusion room.AOX3, hemodynamically stable. He reports being in his usual self, and that his UTI symptoms have almost completely resolved. instructed to continue course of Bactrim as prescribed. will continue to monitor. DRE ALBA, ONC Aug 29, 2017 13:26
[~2017-10-24 11:15] MED LIST changes: -ALTEPLASE RECOMB 2 MG VIAL IVP PRN; -DEXTROSE 5%(*) 100 ML BAG 100 ML IVPB PRN; -FLEXIBLE CONTAINER IV ONE; -GEMCITABINE IVPB ONE; +LIDO45CR TP; -LIDOCAINE/SOD BICARB 8.4% SYR ID PRN; -NS 0.9% IVPB ONE; -NS(*) 0.9% 100 ML BAG 100 ML IVPB PRN; +OXYC-373 PO; +SERT25TA87 PO; +SULF1TAB24 PO; -WATER FOR INJ,STERILE 20 ML IVP PRN; -[UNRECOGNIZED DRUG - OTHER] IV ONE; -[UNRECOGNIZED DRUG - OTHER] IVPB ONE
[2017-10-24] MEDS ORDERED: OXYC-373 PO ×2 (13:16→13:29)
--- NOTE | 2017-10-24 14:08 | PT PLAN OF CARE ---
Physician: Radha Manzanares MD Patient is being seen: 1x/Week Therapist:Porsche Pinto, PT, DPT, CLT Medical Diagnosis: Pancreatic Cancer Treatment Diagnosis: Pancreatic Cancer Date of Onset: 08/01/17 Date of Initial Evaluation: 08/01/17 Date patient was last seen: 10/24/17 Number of treatments: 3 Number of cancellations/No shows: 0 INTERVENTIONS: Manual Therapy/STM/MET Strengthening/condition Ice/Heat Range of Motion Spinal Stabilization Ultrasound Stretching Iontophoresis Neuromuscular Re-ed Closed Chain Program Electrical Stim Posture/Body mechanics Gait Trg/Balance Trg Biofeedback Home Exercise Program Mech./Manual Traction Therapeutic Activities Pelvic Floor GOALS: In 2 MO pt will decrease lumbar pain to 0/10 most days of the week for improved function with ADL's. MET In 2 MO pt will increase ECOG performance status and return to recreational exercise for improved function with ADL's and improved oncological outcomes. In 4 MO pt will improve FACT-G to > 60/108 for improved function with ADL's and general well-being. PATIENT'S GOAL: Return to recreational exercise, improve function, decrease lumbar pain. Status of Patient's Goals: In Progress Patient Compliance: Good Prognosis: Fair Reasons for continuing therapy: Pt shows signs and symptoms with R rhomboid strain and weakness following surgical intervention. Pt is tender to palpation along the body of the R rhomboid as well as has pain with stretch and contraction. More frequent PT is indicated to perform neuromuscular facilitation to this region while continuing progress towards independent exercise and return to cross-fit. Pt is to continue with chemo every 2 weeks at this time and continually be monitored for other physical side effects of oncological intervention.. Posture: Pt has B rounded forward shoulders. ROM: UE ROM WFL Strength: LE MMT: Hip: flexion: B 4+/5, Ext: B 4-/5, Abd: B 4/5, Add: B 4+/5. Knee: flexion: L 4+/5, R 5/5, Ext: B 5/5. Ankle: PF: B 4+/5, DF: B 5/5 Palpation: Pt is tender to palpation along the belly of the R rhomboid Special Tests: FACT-G Eval: PWB: , SWB: , EWB: 09/04, FWB: 12/09, Total Score: 57/108. FACT-G 10/24/17: PWB: 03/10, SWB: , EWB: , FWB: , Total Score: 60/108. Mobility: ECOG Performance Status: Grade 2 If you have any questions or concerns, please feel free to contact me at [phone]. Than you, Porsche Pinto, PT, DPT, CLT MTDD
== END 2017-10-30 ==
LOC: PT 11:15
PROVIDERS: ATTEND Internal Medicine Hematology
DX: C25.9 Malignant neoplasm of pancreas, unspecified (principal); R53.0 Neoplastic (malignant) related fatigue; G62.9 Polyneuropathy, unspecified; M54.5 Low back pain; B20 Human immunodeficiency virus [HIV] disease
CPT/HCPCS: 97162

== ENCOUNTER 2017-12-26 12:53 | Outpatient (RCR) | payer MEDICARE ==
[2017-10-03 11:30] VITALS: BP 145/94
--- NOTE | 2017-10-04 21:56 | ONCOLOGY FOLLOW UP NOTE ---
EVENT DATE: October 03, 2017 CHIEF COMPLAINT/REASON FOR VISIT Mr. Alcantara is a pleasant, 57-year-old gentleman with metastatic pancreatic cancer with lung metastases, recently discovered on a wedge resection in preparation for hopeful surgery. HISTORY OF PRESENT ILLNESS Mr. Alcantara returns. Please see the notes from Dr. Lit Berkowitz from the [facility] in [place] for more detail. We started a reduced dose of Abraxane and Gemzar due to his need for HIV medication with the hopes of neoadjuvant therapy followed by surgery. He had lung lesions that we thought were due to infection due to his HIV history. However, on imaging, they appeared to shrink, raising the concern that this was stage IV disease. Thus, after Tumor Board consideration, we did a wedge resection by Dr. Andres Smith last week and, unfortunately, the preliminary does show this as metastatic pancreatic cancer. As such, surgery with Whipple surgery would not be curative and, therefore, does not recommend it. He presents today to discuss next steps. He is recovering quite well from surgery. His drain looks excellent, and there are no new symptoms of concern. He is doing well at home. He received seven doses of chemotherapy thus far and overall tolerated therapy extremely well. We would like to restart it as soon as the patient has recovered from surgery, hopefully in another two to three weeks or so. He sees Surgery next week for discharge followup. REVIEW OF SYSTEMS CONSTITUTIONAL: No fevers or chills. Positive fatigue. HEENT: No headache or vision changes. CARDIOVASCULAR: No chest pain, dyspnea on exertion, or edema. RESPIRATORY: No shortness of breath, wheeze, cough. He does have some tenderness where the surgery site was, but overall is doing well. MUSCULOSKELETAL: No weakness or joint pain beyond mild weakness from therapy. ENDOCRINE: No heat or cold intolerance. PSYCHIATRIC: Normal mood and affect in the exam room. Appropriately upset. He would like to start an antidepressant. No suicidal ideation. SKIN: No concerning findings. HEMATOLOGIC: No bruising or bleeding. LYMPHATIC: No concerning lumps or bumps. Remainder of 14-point review of systems otherwise negative. PHYSICAL EXAMINATION VITAL SIGNS: Blood pressure 145/94, pulse 68, respiratory rate 16, temperature 97.4 Fahrenheit, oxygen saturation 95% on room air. Weight 60.1 kg. Pain 6/ 10. Fatigue 8/10. GENERAL: Stable condition, resting comfortably in the chair. ECOG performance status of 1, appropriately tearful in our discussions today. Thin, unchanged. HEENT: Normocephalic, atraumatic. CARDIOVASCULAR: Regular rate and rhythm. LUNGS: Good respiratory function. He does have the bandage on the left chest wall without issue. ABDOMEN: Soft, nontender. EXTREMITIES: No clubbing, cyanosis, or edema. PSYCHIATRIC: Normal mood and affect. Remainder of physical exam otherwise unremarkable. IMPRESSION AND PLAN Mr. Alcantara is a pleasant, 57-year-old gentleman with the following: Stage IV pancreatic cancer with lung metastases. We had hoped that this was curable and resectable and pursued neoadjuvant chemotherapy with Gemzar and Abraxane with appropriate dosing due to his bilirubin and HIV medications. However, we saw nonspecific lung nodules improve, and therefore, a biopsy was done. The preliminary biopsy shows metastatic adenocarcinoma from the pancreas and, therefore, we do not feel that surgery is the appropriate next step. We will continue the gemcitabine and Abraxane as he was responding to it. He met with counseling today, and we had an extensive discussion today about his status and prognosis. While this is no longer curative, I do anticipate he will survive for many months and so far has responded to therapy quite well. There are clinical trials as well as other standard therapies we could utilize as well. I answered all his many questions today. He is not ready for hospice, and I do not recommend it. BILLING Return visit level 5. Total time 45 minutes, consult time 30. MTDD
[2017-10-17 14:10] VITALS: BP 126/75
[2017-10-17 14:19] LABS: PLATELET COUNT, AUTOMATED 226 K/uL (150-450)
[2017-10-24 09:29] VITALS: BP 117/72
[2017-10-24] MEDS: DEXAMETHASONE SOD PHOS 10MG/ML IVP PRN (11:37)
[2017-10-24] MEDS: PALONOSETRON 0.25 MG/5 ML VIAL IVP PRN (11:37)
[2017-10-24] MEDS: NS(*) 0.9% 500 ML BAG 500 ML IV PRN (11:38)
[2017-10-24] MEDS: HEPARIN FLSH (PORT) 500 UN/5ML IVP PRN (16:38)
--- NOTE | 2017-10-25 10:16 | [facility] ONCOLOGY NOTE ---
EVENT DATE: October 24, 2017 CHIEF COMPLAINT/REASON FOR VISIT Mr. Alcantara is a very pleasant 57-year-old gentleman with metastatic pancreatic cancer with lung metastases recently discovered on a wedge resection in preparation for potential surgery. He is here for followup to resume chemotherapy for his metastatic disease. HISTORY OF PRESENT ILLNESS Mr. Alcantara returns. We started a reduced dose of Abraxane and Gemzar due to his need for HIV medication with the hopes that this would be neoadjuvant therapy followed by surgery. He had lung lesions that were thought to be due to infection from his HIV history. However, on imaging they appeared to shrink with treatment, raising the concern that this was Stage IV disease. Thus, after Tumor Board discussion, we did a wedge resection by Dr. Andres Smith in September 2017 and, unfortunately, this did show metastatic pancreatic cancer. As such, surgery with Whipple surgery would not be curative and, therefore, we do not recommend it. When I saw him at the end of September, he was struggling with depression and suicidal ideation. This was significant grief related from the confirmation of Stage IV disease. He is doing much better now. He is going to counseling and feels the anxiety and depression has been under much better control. His only complaint is pain near the site of the drain on the left shoulder blade and I will refill his Percocet and try some topical lidocaine as well. We discussed today next steps in treatment and we plan to resume the Gemzar and Abraxane with repeat imaging in approximately two to three months. REVIEW OF SYSTEMS CONSTITUTIONAL: No fevers or chills. Positive fatigue, improved. HEENT: No headache or vision changes. CARDIOVASCULAR: No chest pain, dyspnea on exertion or edema. MUSCULOSKELETAL: Left scapular pain near the site of the surgical drain. RESPIRATORY: No shortness of breath, wheeze or cough. ENDOCRINE: No heat or cold intolerance. PSYCHIATRIC: Improved anxiety and depression. No suicidal ideation. He re- started an antidepressant and is going to counseling. SKIN: No concerning findings. HEMATOLOGIC: No bruising or bleeding. LYMPHATIC: No concerning lumps or bumps. Remainder of the 14-point review of systems is otherwise negative. PHYSICAL EXAMINATION VITAL SIGNS: Blood pressure 117/72, pulse 46, respiratory rate 16, temperature 96.5 Fahrenheit, oxygen saturation 96% on room air. Weight 61.2 kg. Pain 7/10 , fatigue 4/10. GENERAL: Stable condition, resting comfortably in the chair. HEENT: Normocephalic, atraumatic. MUSCULOSKELETAL: His back looks normal with no signs of infection. The pain is near the left scapula near the site of the former drain, which has been removed. CV: Regular rate and rhythm.. LUNGS: Clear to auscultation bilaterally. No dullness at the bases. EXTREMITIES: No clubbing, cyanosis or edema. PSYCHIATRIC: Normal mood and affect, much improved today. The remainder of the physical exam is otherwise unremarkable. IMPRESSION AND PLAN Mr. Alcantara is a pleasant 57-year-old gentleman with the following: Stage IV pancreatic cancer with lung metastases. This is not curable and he understands this. Surgery would not be appropriate. We plan to resume the Gemzar and Abraxane on an every other week schedule with reduced dose due to his HIV medicines and bilirubin. I will repeat imaging in approximately two to three months but he was responding at the most recent evaluation. It is no longer curative but I do hope he would survive for many months to a few years most likely. We are hopeful that clinical trials as well as future standard therapies would be useful as well. I answered his questions, met his mother and answered her questions today. Billing: Return visit level 4. Total time 30 minutes, counseling time 20. MTDD
[2017-10-31 14:10] VITALS: BP 110/58
[2017-10-31 14:15] LABS: PLATELET COUNT, AUTOMATED 199 K/uL (150-450)
[2017-11-07 12:54] VITALS: BP 116/68
[2017-11-07] MEDS: PALONOSETRON 0.25 MG/5 ML VIAL IVP PRN (13:49)
[2017-11-07] MEDS: DEXAMETHASONE SOD PHOS 10MG/ML IVP PRN (13:50)
[2017-11-07] MEDS: HEPARIN FLSH (PORT) 500 UN/5ML IVP PRN (13:51)
[2017-11-07] MEDS: NS(*) 0.9% 500 ML BAG 500 ML IV PRN (13:51)
--- NOTE | 2017-11-07 15:49 | Oncology Progress Note ---
History of Present Illness Evaluation Evaluation Date: Nov 07, 2017 Evaluation Time: 13:15 Primary Care Provider Primary Care Provider: Dr. Cotton Accompanied by Accompanied by: Friend Last seen by : Pollo 10/24/2017 Chief Complaint Chief Complaint Management of Gemzar and Abraxane for Pancreatic Adenocarcinoma Oncology History Oncology History Pancreatic Adenocarcinoma Dx: 06/2017. Treatment Treatment -07/01/2017 Initial Plan to pursue four cycles of neoadjuvant chemotherapy with Gemzar and Abraxane with reduced of Abraxane due to the elevated bilirubin - Treatment re-adjusted to admin [place]/Abrax Q other week other due to his need for HIV medication and development of Thrombocytopenia. Now adjusting his therapy to every other week with a plan for eight doses or four cycles before reevaluation and hopeful consideration of surgery. - On August 15 2017. Third cycle of neoadjuvant Gemcitabine and Abraxane . -09/12/2017 Cycle#4 Gemcitabine and Abraxane -10/24/17 Cycle#5/D1 Gemcitabine and Abraxane -11/07/17 Cycle#5/D15 Gemcitabine and Abraxane HPI HPI Emil Levi is a very pleasant 57 year old male who has Pancreatic Adenocarcinoma Dx: 06/2017. Patient's presents to the cancer center today accompanied by a friend, for his 11/07/17 Cycle#5/D15 Gemcitabine and Abraxane. s/p lung biopsy and tube placement draining x 2 days at end of September 2017. ever since he has developed a left lower scapula towards the spine area, what appears to be muscle tension pain, pain accentuated at bedtime, alleviated by rest, leaning forward and Percocet 1-2tabs [id number]. Patient is hemodynamically stable. Tolerating treatment with minor toxicities at this stage. He reports that besides minimal fatigue he has been i is usual state of health and maintain at baseline. With some on=chronic UTIs ( Bactrim on board Prn).he denies any chill, fevers, night sweats, cardiac type chest pain, no SOB, he has no skin changes, no weight changes, appetite stable, level of activity stable.. After meeting with Surgeons he was not a candidate for further surgery due to progression of disease. Dr. Talbot and patient greed on continuing palliative treatment until uncontrolled toxicities side effects. Patient is on treatment Q 6months for his HIV with labs including viral load [id number]. Diagnostic Studies Result Diagram: 11/07/17 1300 11/07/17 1300 PMH Patient History: FH: alcoholism BROTHER OR SISTER, Age:53 PATERNAL AUNT, PATERNAL GRANDMOTHER, FH: heart disease FATHER, , Age:71 FH: pancreatic cancer PATERNAL GRANDMOTHER, FH: spinal stenosis MOTHER, Age:78 FHx: congenital heart disease FATHER, , Age:71 Katja thyroiditis MOTHER, Age:78 Pulmonary fibrosis FATHER, , Age:71 Social/Occupational History Social History: Social History This is a 57 Yr old White male, he is S Single and has [] Children Hx Smoking: No Smoking Status: Never Smoker Exposure to Second Hand Smoke?: Yes (as a child) Allergies & Medications Allergies: Coded Allergies: diphenhydramine (Verified Allergy, Mild, hives, 05/19/17) Penicillins (Verified Allergy, Unknown, 05/19/17) lamivudine (Unverified Allergy, Unknown, HIVES, 05/19/17) shellfish derived (Unverified Allergy, Unknown, HIVES, 05/19/17) metformin (Unverified Adverse Reaction, Intermediate, GI DISTRESS, 05/19/17) Home Meds Active Scripts Oxycodone Hcl/Acetaminophen (OXYCODONE-ACETAMINOPHEN 5-325) 1 Each Tablet, 1-2 EACH PO Q6H PRN for PAIN, #40 TAB 0 Refills Prov:MARY BETH TALBOT MD 10/24/17 Lidocaine (LC-4) 45 Gm Cream..g., 1 ULISSES TP Q1H PRN for PAIN, #60 GM 1 Refill Prov:MARY BETH TALBOT MD 10/24/17 Sulfamethoxazole/Trimethoprim (SULFAMETHOXAZOLE-TMP DS TABLET) 1 Each Tablet, 1 TAB PO BID, #20 TAB 3 Refills Prov:GUZMAN COTTON MD 10/06/17 Alprazolam (ALPRAZOLAM) 1 Mg Tablet, 1 TAB PO TID PRN for anxiety, #90 TAB 1 Refill Prov:GUZMAN COTTON MD 10/06/17 Sertraline Hcl (ZOLOFT) 25 Mg Tablet, 1 TAB PO QDAY, #30 TAB 3 Refills Prov:MARY BETH TALBOT MD 10/03/17 Mometasone Furoate (MOMETASONE FUROATE) 45 Gm Oint...g., 1 ULISSES TP BID, #1 TUBE 5 Refills Prov:GUZMAN COTTON MD 09/28/17 Cholecalciferol (Vitamin D3) (VITAMIN D) 10,000 Unit Capsule, 1 CAP PO QDAY, #90 CAPSULE 3 Refills Prov:GUZMAN COTTON MD 08/29/17 Testosterone (TESTIM) 5 Gm Gel..gram., 1 ULISSES TD QDAY, #90 PACKET 1 Refill Prov:GUZMAN COTTON MD 08/23/17 Albuterol Sulfate 90 Mcg/Act (PROAIR HFA 90 MCG/ACT) 8.5 Gm Hfa.aer.ad, 2 PUFF IH Q4-6H PRN for shortness of breath, #1 INHALER 5 Refills Prov:GUZMAN COTTON MD 08/09/17 Loperamide Hcl (LOPERAMIDE) 2 Mg Capsule, 3 CAP PO QID PRN for diarrhea, #360 CAPSULE 2 Refills Prov:LETICIA REZA PHARMD 07/20/17 Fenofibrate Nanocrystallized (FENOFIBRATE) 145 Mg Tablet, 1 TAB PO QDAY, #90 TAB 3 Refills Prov:GUZMAN COTTON MD 07/12/17 Acyclovir (ACYCLOVIR) 400 Mg Tablet, 1 TAB PO BID, #120 TAB 5 Refills Prov:GUZMAN COTTON MD 05/10/17 Blood-Glucose Control, Low (BREEZE 2) 1 Each Each, 1 EACH MC DIRECTED, #100 10 Refills Use to test blood sugars once daily and up to TID as needed. Prov:GUZMAN COTTON MD 04/25/17 Lancets (MICROLET) 1 Each Each, 1 EACH MC DAILY, #100 3 Refills Used to check blood sugars daily. Prov:GUZMAN COTTON MD 04/19/17 Reported Medications Gemcitabine Hcl (GEMCITABINE HCL) 1 Gm Vial, 1 GM IV, VIAL 07/20/17 Cyanocobalamin (Vitamin B-12) (B-12) 2,500 Mcg Tab.subl, 1 TAB PO QDAY 07/20/17 Prochlorperazine Maleate (Compazine) 10 Mg Tablet, 10 MG PO PRN PRN for NAUSEA/VOMITING 06/27/17 Lipase/Protease/Amylase (CREON DR 12,000 UNITS CAPSULE) 1 Each Capsule.dr, 2 CAP PO TID 06/15/17 Multivitamin (DAILY VITAMIN) 1 Each Tablet, 1 TAB PO QDAY 05/23/14 Aspirin (ASPIRIN) 81 Mg Tab.chew, 1 TAB PO QDAY, TAB.CHEW 05/23/14 Calcium Carbonate (CALTRATE 600) 600 Mg Tablet, 2 TAB PO BID 04/15/14 Darunavir Ethanolate (PREZISTA) 800 Mg Tablet, 1 TAB PO DAILY 11/23/13 Emtricitabine/Tenofovir (TRUVADA 200 MG-300 MG TABLET) 1 Each Tablet, 1 TAB PO QDAY 11/23/13 Discontinued Reported Medications Paclitaxel (PACLITAXEL) 6 Mg/1 Ml Vial, 6 MG IV, VIAL 07/20/17 Sumatriptan (SUMATRIPTAN) 20 Mg Aubrey, 1 SPR NS ONCE, SPRAY 07/20/17 Review of Systems Constitution: Denies Appetite/Weight Change, Denies Fever/Chills/Sweating, Denies Other HEENT: No EARS: Tinnitus, No NOSE: Nasal Discharge, No THROAT: Sore Throat, No EYES: Dipolpia, No EARS: Hearing Problems, No NOSE: Epistaxis, No THROAT: Mouth Ulcers, No EYES: Vision Change, No OTHER Respiratory: No Cough, No Expectoration, No Hemoptysis, No Shortness of Breath, No OTHER Cardiovascular: No Chest Pain, No Orthopnea, No Edema, No Palpitations, No OTHER Gastrointestinal: No Nausea, No Vomitting, No Diarrehea, No Constipation, No Heart Burn, No Swallowing Difficulties, No Abdominal Pain, No Other Gentiourinary: Nocturia Musculoskeletal: Muscle Pain; No Joint Pain, No Bone Pain, No Other Hematological: No Bleeding, No Weakness, No Enlarged Lyph Nodes, No Bruising; Fatigue; No Other Skin: No Skin Rash, No Lumps, No Erythema, No Dry Skin, No Moist Skin, No Other Psychiatric: Anxiety Vital Signs Vital Signs Temperature: 98.3 Pulse: 61 BP Systolic: 116 BP Diastolic: 68 Respiratory Rate: 16 O2 SAT: 95 O2 Delivery: Height (feet) Height (inches) 68.50 Weight lb: 141 Weight oz: Weight Kg (Thaddeus): Pain: 0 ECOG-1 Physical Exam General: Looks Stable, Well Developed HEENT: HEAD:Atraumatic Neck: Supple Lungs: Clear to Auscultation Heart: Regular Rate and Rhythm Abdomen: Soft and Nontender Psychiatric: Mood appears normal Assessment and Plan Assessment and Plan Emil Levi is a very pleasant 57 year old male who has Pancreatic Adenocarcinoma Dx: 06/2017. Patient's presents to the cancer center today accompanied by a friend, for his 11/07/17 Cycle#5/D15 Gemcitabine and Abraxane. s/p lung biopsy and tube placement draining x 2 days at end of September 2017. ever since he has developed a left lower scapula towards the spine area, what appears to be muscle tension pain, pain accentuated at bedtime, alleviated by rest, leaning forward and Percocet 1-2tabs [id number]. Patient is hemodynamically stable. Tolerating treatment with minor toxicities at this stage. He reports that besides minimal fatigue he has been i is usual state of health and maintain at baseline. With some on=chronic UTIs ( Bactrim on board Prn).he denies any chill, fevers, night sweats, cardiac type chest pain, no SOB, he has no skin changes, no weight changes, appetite stable, level of activity stable.. After meeting with Surgeons patient was not a candidate for further surgery due to progression and stage of disease. Dr. Talbot and patient greed on continuing palliative treatment until uncontrolled toxicities side effects.. Patient is on treatment Q 6months for his HIV with labs including viral load [id number]. DIAGNOSTIC DATA. REVIEWED PER [employer]. WITHIN ACCEPTABLE PARAMETERS 1. Pancreatic Adenocarcinoma. 11/07/17 Cycle#5/D15 Gemcitabine and Abraxane. s/p lung biopsy and tube placement draining x 2 days at end of September 2017 2. Recurrent UTI; UA done, previously on Bactrim, patient to continue Bactrim as prescribed, and will continue to monitor closely. 3. Pain. left lower scapula towards the spine area, level 7 ( 0-10 scale) what appears to be muscle tension pain, alleviated by rest, leaning forward and Percocet 1-2tabs [id number]. Patient is hemodynamically stable. No distress, No sob. refill 40 pills of Percocet given today. patient to take 1-2 tabs Q 6-8 Hours PRN. PLAN - Administer cycle#5/D15 of neoadjuvant gemcitabine and Abraxane today 11/07/17, - Plan to continue treatment -Patient may take ibuprofen 800 mg, plus magnesium oxide, Plus alprazolam at bedtime to help alleviate pain and ease with sleep at night - Continue Bactrim PO as prescribed for recurrent UTI/PCP ppfx - F/u with RN DOCUMENT IMPROVEMENT SPECIALIST/MD per protocol - Patient to bring reports of HIV labs including viral load - patient to continue PT, and counselling psychosocial support as planned. - patient may take Potassium chloride 10meQ PO daily x 7 days. and Mag Oxide 400mg Po daily. - Continue to monitor CBC, CMP, Mag - Contact Clinic with any issues or concerns. TIME SPENT: 25 minutes >20 minutes includes but not limited to discussion, counselling and co-ordination~ of care. Plan discussed extensively with patient. All the questions answered today. Thank you for the opportunity to be involved in the care of Emil Levi. Billing level : Return visit 4. DRE ALBA, ONC Nov 07, 2017 15:49
[2017-11-15 12:58] VITALS: BP 113/78
[2017-11-15 13:03] LABS: PLATELET COUNT, AUTOMATED 271 K/uL (150-450)
[2017-11-21 12:53] VITALS: BP 125/66
[2017-11-21 13:16] LABS: PLATELET COUNT, AUTOMATED 212 K/uL (150-450)
[2017-11-21] MEDS: PALONOSETRON 0.25 MG/5 ML VIAL IVP PRN (13:36)
[2017-11-21] MEDS: DEXAMETHASONE SOD PHOS 10MG/ML IVP PRN (13:37)
--- NOTE | 2017-11-21 14:12 | Oncology Progress Note ---
History of Present Illness Evaluation Evaluation Date: Nov 21, 2017 Evaluation Time: 13:10 Primary Care Provider Primary Care Provider: Dr. Cotton Accompanied by Accompanied by: Sister Last seen by : Pollo 10/24/2017 Chief Complaint Chief Complaint Management of Pancreatic Adenocarcinoma Oncology History Oncology History Pancreatic Adenocarcinoma Dx: 06/2017. Treatment Treatment 07/01/2017 Initial Plan to pursue four cycles of neoadjuvant chemotherapy with Gemzar and Abraxane with reduced of Abraxane due to the elevated bilirubin - Treatment re-adjusted to admin Sunshine/Abrax Q other week other due to his need for HIV medication and development of Thrombocytopenia. Now adjusting his therapy to every other week with a plan for eight doses or four cycles before reevaluation and hopeful consideration of surgery. - On August 15 2017. Third cycle of neoadjuvant Gemcitabine and Abraxane . -09/12/2017 Cycle#4 Gemcitabine and Abraxane -10/24/17 Cycle#5/D1 Gemcitabine and Abraxane - 11/07/17 Cycle#5/D15 Gemcitabine and Abraxane 11-21-2017 Cycle#6/D1 Gemcitabine and Abraxane HPI HPI Emil Levi is a very pleasant 57 year old male who has Pancreatic Adenocarcinoma Dx: 06/2017. Patient's presents to the cancer center today accompanied by his sister, for his 11/21/17 Cycle#6/D1 Gemcitabine and Abraxane. s/p lung biopsy and tube placement draining x 2 days at end of September 2017. ever since he has developed a left lower scapula pain towards the spine area, what appears to be muscle tension pain, pain accentuated at bedtime, alleviated by rest, leaning forward and Percocet 1-2tabs [id number]. Patient is hemodynamically stable. Tolerating treatment with minor toxicities at this stage. He reports that besides minimal fatigue he has been in is usual state of health and maintain at baseline. With some chronic UTIs ( Bactrim on board Prn).He denies any chill, fevers, night sweats, cardiac type chest pain, no SOB, he has no skin changes, no weight changes, appetite stable, level of activity stable.. After meeting with Surgeons he was not a candidate for further surgery due to progression of disease. Dr. Talbot and patient greed on continuing palliative treatment until uncontrolled toxicities side effects. Patient is on treatment Q 6months for his HIV with labs including viral load [id number]. he recently saw his HIV provider last Tuesday and Counts were within acceptable limits. Diagnostic Studies Result Diagram: 11/21/17 1310 11/21/17 1310 PMH Patient History: FH: alcoholism BROTHER OR SISTER, Age:53 PATERNAL AUNT, PATERNAL GRANDMOTHER, FH: heart disease FATHER, , Age:71 FH: pancreatic cancer PATERNAL GRANDMOTHER, FH: spinal stenosis MOTHER, Age:78 FHx: congenital heart disease FATHER, , Age:71 Katja thyroiditis MOTHER, Age:78 Pulmonary fibrosis FATHER, , Age:71 Social/Occupational History Social History: Social History This is a 57 Yr old White male, he is S Single and has [] Children Hx Smoking: No Smoking Status: Never Smoker Exposure to Second Hand Smoke?: Yes (as a child) Allergies & Medications Allergies: Coded Allergies: diphenhydramine (Verified Allergy, Mild, hives, 05/19/17) Penicillins (Verified Allergy, Unknown, 05/19/17) lamivudine (Unverified Allergy, Unknown, HIVES, 05/19/17) shellfish derived (Unverified Allergy, Unknown, HIVES, 05/19/17) metformin (Unverified Adverse Reaction, Intermediate, GI DISTRESS, 05/19/17) Home Meds Active Scripts Oxycodone Hcl/Acetaminophen (OXYCODONE-ACETAMINOPHEN 5-325) 1 Each Tablet, 1-2 EACH PO Q6H PRN for PAIN, #40 TAB 0 Refills Prov:MARY BETH TALBOT MD 10/24/17 Lidocaine (LC-4) 45 Gm Cream..g., 1 ULISSES TP Q1H PRN for PAIN, #60 GM 1 Refill Prov:MARY BETH TALBOT MD 10/24/17 Sulfamethoxazole/Trimethoprim (SULFAMETHOXAZOLE-TMP DS TABLET) 1 Each Tablet, 1 TAB PO BID, #20 TAB 3 Refills Prov:GUZMAN COTTON MD 10/06/17 Alprazolam (ALPRAZOLAM) 1 Mg Tablet, 1 TAB PO TID PRN for anxiety, #90 TAB 1 Refill Prov:GUZMAN COTTON MD 10/06/17 Sertraline Hcl (ZOLOFT) 25 Mg Tablet, 1 TAB PO QDAY, #30 TAB 3 Refills Prov:MARY BETH TALBOT MD 10/03/17 Mometasone Furoate (MOMETASONE FUROATE) 45 Gm Oint...g., 1 ULISSES TP BID, #1 TUBE 5 Refills Prov:GUZMAN COTTON MD 09/28/17 Cholecalciferol (Vitamin D3) (VITAMIN D) 10,000 Unit Capsule, 1 CAP PO QDAY, #90 CAPSULE 3 Refills Prov:GUZMAN COTTON MD 08/29/17 Testosterone (TESTIM) 5 Gm Gel..gram., 1 ULISSES TD QDAY, #90 PACKET 1 Refill Prov:GUZMAN COTTON MD 08/23/17 Albuterol Sulfate 90 Mcg/Act (PROAIR HFA 90 MCG/ACT) 8.5 Gm Hfa.aer.ad, 2 PUFF IH Q4-6H PRN for shortness of breath, #1 INHALER 5 Refills Prov:GUZMAN COTTON MD 08/09/17 Loperamide Hcl (LOPERAMIDE) 2 Mg Capsule, 3 CAP PO QID PRN for diarrhea, #360 CAPSULE 2 Refills Prov:LETICIA REZA PHARMD 07/20/17 Fenofibrate Nanocrystallized (FENOFIBRATE) 145 Mg Tablet, 1 TAB PO QDAY, #90 TAB 3 Refills Prov:GUZMAN COTTON MD 07/12/17 Acyclovir (ACYCLOVIR) 400 Mg Tablet, 1 TAB PO BID, #120 TAB 5 Refills Prov:GUZMAN COTTON MD 05/10/17 Blood-Glucose Control, Low (BREEZE 2) 1 Each Each, 1 EACH MC DIRECTED, #100 10 Refills Use to test blood sugars once daily and up to TID as needed. Prov:GUZMAN COTTON MD 04/25/17 Lancets (MICROLET) 1 Each Each, 1 EACH MC DAILY, #100 3 Refills Used to check blood sugars daily. Prov:GUZMAN COTTON MD 04/19/17 Reported Medications Gemcitabine Hcl (GEMCITABINE HCL) 1 Gm Vial, 1 GM IV, VIAL 07/20/17 Cyanocobalamin (Vitamin B-12) (B-12) 2,500 Mcg Tab.subl, 1 TAB PO QDAY 07/20/17 Prochlorperazine Maleate (Compazine) 10 Mg Tablet, 10 MG PO PRN PRN for NAUSEA/VOMITING 06/27/17 Lipase/Protease/Amylase (CREON DR 12,000 UNITS CAPSULE) 1 Each Capsule.dr, 2 CAP PO TID 06/15/17 Multivitamin (DAILY VITAMIN) 1 Each Tablet, 1 TAB PO QDAY 05/23/14 Aspirin (ASPIRIN) 81 Mg Tab.chew, 1 TAB PO QDAY, TAB.CHEW 05/23/14 Calcium Carbonate (CALTRATE 600) 600 Mg Tablet, 2 TAB PO BID 04/15/14 Darunavir Ethanolate (PREZISTA) 800 Mg Tablet, 1 TAB PO DAILY 11/23/13 Emtricitabine/Tenofovir (TRUVADA 200 MG-300 MG TABLET) 1 Each Tablet, 1 TAB PO QDAY 11/23/13 Review of Systems Constitution: Denies Appetite/Weight Change, Denies Fever/Chills/Sweating, Denies Other HEENT: No EARS: Tinnitus, No NOSE: Nasal Discharge, No THROAT: Sore Throat, No EYES: Dipolpia, No EARS: Hearing Problems, No NOSE: Epistaxis, No THROAT: Mouth Ulcers, No EYES: Vision Change, No OTHER Respiratory: No Cough, No Expectoration, No Hemoptysis, No Shortness of Breath, No OTHER Cardiovascular: No Chest Pain, No Orthopnea, No Edema, No Palpitations, No O THER Gastrointestinal: No Nausea, No Vomitting, No Diarrehea, No Constipation, No Heart Burn, No Swallowing Difficulties, No Abdominal Pain, No Other Gentiourinary: Nocturia Musculoskeletal: Muscle Pain; No Joint Pain, No Bone Pain, No Other Hematological: No Bleeding, No Weakness, No Enlarged Lyph Nodes, No Bruising; Fatigue; No Other Skin: No Skin Rash, No Lumps, No Erythema, No Dry Skin, No Moist Skin, No Other Psychiatric: Anxiety Vital Signs Vital Signs Temperature: 98.2 Pulse: 42 BP Systolic: 125 BP Diastolic: 66 Respiratory Rate: 16 O2 SAT: 97 O2 Delivery: Height (feet) Height (inches) 68.50 Weight lb: 141 Weight oz: Weight Kg (Thaddeus): Pain: 7 Physical Exam General: Looks Stable, Well Developed HEENT: HEAD:Atraumatic Neck: Supple Lungs: Clear to Auscultation Heart: Regular Rate and Rhythm Abdomen: Soft and Nontender Psychiatric: Mood appears normal Assessment and Plan Assessment and Plan Emil Levi is a very pleasant 57 year old male who has Pancreatic Adenocarcinoma Dx: 06/2017. Patient's presents to the cancer center today accompanied by his sister, for his 11/21/17 Cycle#6/D1 Gemcitabine and Abraxane. s/p lung biopsy and tube placement draining x 2 days at end of September 2017. ever since he has developed a left lower scapula pain towards the spine area, what appears to be muscle tension pain, pain accentuated at bedtime, alleviated by rest, leaning forward and Percocet 1-2 tabs Q6 hours. Patient is hemodynamically stable. Tolerating treatment with minor toxicities at this stage. He reports that besides minimal fatigue he has been in is usual state of health and maintain at baseline. DIAGNOSTIC DATA. REVIEWED PER [facility]. WITHIN ACCEPTABLE PARAMETERS 1. Pancreatic Adenocarcinoma. 11/21/17 Cycle#6/D1 Gemcitabine and Abraxane. s/p lung biopsy and tube placement draining x 2 days at end of September 2017 2. Recurrent UTI; UA done, previously on Bactrim, patient to continue Bactrim a with recurrent of UTIs as prescribed, and will continue to monitor closely. 3. Pain. left lower scapula towards the spine area, level 7 ( 0-10 scale) what appears to be muscle tension pain, alleviated by rest, leaning forward and Percocet 1-2tabs Q4lswpt. Patient is hemodynamically stable. No distress, No sob.He informs me that he has not been taking the percocet as much. Pain remain the same. PLAN - Administer cycle#6/D1 of neoadjuvant gemcitabine and Abraxane today 11/21/17 - Plan to continue treatment for two more cycles, before considering re- imaging. Planned discussed with Dr Talbot today. -Patient may take ibuprofen 800 mg, plus magnesium oxide, Plus alprazolam at bedtime to help alleviate pain and ease with sleep at night - Take Bactrim PO as prescribed for recurrent UTIs only - F/u with [facility]INER/MD per protocol - TENS units implemented with PT today. for left lower scapula pain, will follow response. - Patient to continue PT, exercise, keep active, and counselling psychosocial support as planned. - Patient continue to take Potassium chloride 10meQ PO daily x 30 days. and Mag Oxide 400mg Po daily. - Continue to monitor CBC, CMP, Mag,CEA next lab drawn - Contact Clinic with any issues or concerns. TIME SPENT: 20 minutes >15 minutes includes but not limited to discussion, counselling and co-ordination~ of care. Plan discussed extensively with patient. All the questions answered today. Thank you for the opportunity to be involved in the care of Emil Levi. Billing level : Return visit 3. DRE ALBA, ONC Nov 21, 2017 14:11
[2017-11-21] MEDS: HEPARIN FLSH (PORT) 500 UN/5ML IVP PRN (16:10)
[2017-11-28 13:06] VITALS: BP 121/90
[2017-11-28 13:13] LABS: PLATELET COUNT, AUTOMATED 233 K/uL (150-450)
[2017-12-05] MEDS: HEPARIN FLSH (PORT) 500 UN/5ML IVP PRN (14:02)
--- NOTE | 2017-12-06 21:48 | ONCOLOGY FOLLOW UP NOTE ---
EVENT DATE: December 05, 2017 CHIEF COMPLAINT/REASON FOR VISIT Mr. Alcantara is a very pleasant, 57-year-old gentleman with metastatic pancreatic cancer with lung metastases discovered on a wedge resection in preparation for potential surgery. He is on cycle six of Gemzar and Abraxane, here for followup. HISTORY OF PRESENT ILLNESS Mr. Alcantara returns. We started a reduced dose of Abraxane and Gemzar due to his need for HIV medication with the hopes that this would be neoadjuvant, followed by surgery. He had lung lesions that were thought to be due to infection with his HIV history. However, on imaging, they appeared to shrink with treatment, raising the concern that this was stage IV disease. It was reviewed at [facility], and we decided to do a wedge resection by Dr. Andres Smith in September of 2017. Unfortunately, this did show metastatic pancreatic cancer. As such, surgery with a Whipple surgery would not be curative and, therefore, we did not recommend it. He is doing much better in terms of depression and suicidal ideation. He continues to have grief with confirmation from his stage IV incurable disease, but overall he is doing much better. He still has some discomfort at the site of the former drain, but this has improved. He has had nausea and cramping, and we will attempt to improve his antiemetic regimen in light of his HIV medications. We will work with our pharmacist on this. He does also have a muscle strain, and the medial side of the quadriceps muscle is mildly tender and very tight on the left leg. There was no obvious injury, but I do not believe this is a blood clot, and I believe this is related to a muscular injury. Provided conservative measure recommendations for him regarding that. No other new issues today; however, he has had a very difficult time with his most recent cycle. REVIEW OF SYSTEMS CONSTITUTIONAL: No fevers or chills. Positive fatigue, improved. HEENT: No headache or vision changes. CARDIOVASCULAR: No chest pain, dyspnea on exertion, or edema. MUSCULOSKELETAL: Left scapular pain near the site of the surgical drain. RESPIRATORY: No shortness of breath, wheeze, or cough. ENDOCRINE: No heat or cold intolerance. PSYCHIATRIC: Improved anxiety and depression. No suicidal ideation. He restarted an antidepressant and is going to counseling. SKIN: No concerning findings. HEMATOLOGIC: No bruising or bleeding. LYMPHATIC: No concerning lumps or bumps. Remainder of the 14-point review of systems is otherwise negative. PHYSICAL EXAMINATION GENERAL: Stable condition, resting comfortably in the chair. PSYCHIATRIC: Normal mood and affect. HEENT: Normocephalic, atraumatic. His hair is beginning to grow back quite well. ABDOMEN: Soft, nontender. MUSCULOSKELETAL: There is tightness of the muscles in the left leg, particularly on the medial side of the quadriceps muscles. I think this is a muscle strain and recommended remedies for that. EXTREMITIES: No clubbing, cyanosis, or edema. Remainder of physical exam otherwise deferred due to amount of time spent in counseling and coordination of care. IMPRESSION AND PLAN Mr. Alcantara is a pleasant gentleman with the followin. Metastatic pancreatic cancer, currently in the middle of cycle six of Gemzar and Abraxane on an every other week schedule. He has considerable nausea, cramps, and other symptoms. His quality of life has been much worse with these two weeks. No obvious infection to explain this. I believe the side effects of chemotherapy are catching up to him, and I would like to take an extra week off this week. If he recovers and we are able to resume therapy, we will try to stay on schedule. If not, we may need to go to an every three-week scheduled. I answered all his questions today. I will see him back in two weeks, ideally between his next two treatments to determine the best schedule. I answered all his questions today. BILLING Return level 4. Total time 30 minutes, counseling time 20. MTDD
[2017-12-12 12:57] VITALS: BP 117/78
[2017-12-12] MEDS: PALONOSETRON 0.25 MG/5 ML VIAL IVP PRN (13:42)
[2017-12-12] MEDS: DEXAMETHASONE SOD PHOS 10MG/ML IVP PRN (13:42)
[2017-12-12] MEDS: HEPARIN FLSH (PORT) 500 UN/5ML IVP PRN (16:21)
[2017-12-19 13:15] VITALS: BP 113/70
[~2017-12-26] VITALS: Ht 174 cm; Wt 58.1 kg
[~2017-12-26 12:53] MED LIST changes: +ALTEPLASE RECOMB 2 MG VIAL IVP PRN; +CHOL200018 PO; -CHOL200022 PO; +D5W IVPB ONE; +DEXTROSE 5%(*) 100 ML BAG 100 ML IVPB PRN; +FLEXIBLE CONTAINER IV ONE; +FLU60SYR36 IM; +GEMCITABINE IVPB ONE; +LIDOCAINE/SOD BICARB 8.4% SYR ID PRN; +NS 0.9% IVPB ONE; +NS(*) 0.9% 100 ML BAG 100 ML IVPB PRN; +NS(*) 0.9% 250 ML BAG 250 ML IVPB PRN; +ONDA8TAB98 PO; +PALONOSETRON 0.25 MG/5 ML VIAL IVP SCH; +POTASSIUM CHL 20 MEQ TABCR PO ONE; +WATER FOR INJ,STERILE 20 ML IVP PRN; +[UNRECOGNIZED DRUG - OTHER] IV ONE; +[UNRECOGNIZED DRUG - OTHER] IVPB ONE
[2017-12-26 13:04] VITALS: BP 128/76
[2017-12-26] MEDS: DEXAMETHASONE SOD PHOS 10MG/ML IVP PRN (13:37)
[2017-12-26] MEDS: PALONOSETRON 0.25 MG/5 ML VIAL IVP PRN (13:37)
[2017-12-26] MEDS: HEPARIN FLSH (PORT) 500 UN/5ML IVP PRN (13:38)
[2017-12-26] MEDS: NS(*) 0.9% 500 ML BAG 500 ML IV PRN (13:38)
[2017-12-26] MEDS ORDERED: ALPR-451 PO (14:07)
[2017-12-26] MEDS ORDERED: [UNRECOGNIZED DRUG - OTHER] IVPB ONE (14:30)
[2017-12-26] MEDS ORDERED: GEMCITABINE IVPB ONE (14:30)
[2017-12-26] MEDS ORDERED: FLEXIBLE CONTAINER IV ONE (15:00)
[2017-12-26] MEDS ORDERED: [UNRECOGNIZED DRUG - OTHER] IV ONE (15:00)
[2017-12-27] MEDS ORDERED: [UNRECOGNIZED DRUG - CODE] PO (16:35)
== END 2017-12-29 ==
LOC: ONC 12:53
PROVIDERS: ATTEND Internal Medicine
DX: Z51.11 Encounter for antineoplastic chemotherapy (principal); C25.9 Malignant neoplasm of pancreas, unspecified; C78.00 Secondary malignant neoplasm of unspecified lung; D69.6 Thrombocytopenia, unspecified; R35.0 Frequency of micturition; R30.9 Painful micturition, unspecified; B20 Human immunodeficiency virus [HIV] disease; R11.0 Nausea
CPT/HCPCS: 36415; 82378; 83735; 85025; 85027; 86301; 96367; 96375; 96413; 96415; 96417; A9270; G0463; J1100; J1642; J2469; J7040; J7050; J9201; J9264; 82040; 82247; 82310; 82374; 82435; 82565; 82947; 84075; 84132; 84155; 84295; 84450; 84460; 84520; 99212

== ENCOUNTER 2018-01-23 09:00 | Outpatient (RCR) | payer MEDICARE ==
[2017-12-19 12:55] VITALS: BP 113/70
[2017-12-19 13:20] LABS: PLATELET COUNT, AUTOMATED 196 K/uL (150-450)
--- NOTE | 2017-12-22 18:08 | PT PLAN OF CARE ---
Physician: Radha Manzanares MD Patient is being seen: 2x/Week Therapist: Porsche Pinto, PT, DPT, CLT Medical Diagnosis: Pancreatic Cancer Treatment Diagnosis: Pancreatic Cancer Date of Onset: 08/01/17 Date of Initial Evaluation: 08/01/17 Date patient was last seen: 12/22/17 Number of treatments: 10 Number of cancellations/No shows: 1 INTERVENTIONS: Manual Therapy/STM/MET Strengthening/condition Ice/Heat Range of Motion Spinal Stabilization Ultrasound Stretching Iontophoresis Neuromuscular Re-ed Closed Chain Program Electrical Stim Posture/Body mechanics Gait Trg/Balance Trg Biofeedback Home Exercise Program Mech./Manual Traction Therapeutic Activities Pelvic Floor GOALS: In 2 MO pt will decrease lumbar pain to 0/10 most days of the week for improved function with ADL's. MET In 2 MO pt will increase ECOG performance status and return to recreational exercise for improved function with ADL's and improved oncological outcomes. In 4 MO pt will improve FACT-G to > 60/108 for improved function with ADL's and general well-being. PATIENT'S GOAL: Return to recreational exercise, improve function, decrease lumbar pain. Status of Patient's Goals: In Progress Patient Compliance: Good Prognosis: Fair Reasons for continuing therapy: Alban shows good progress with strengthening for return to physical activities. However, with continued treatment overall well- being status is variable secondary to side-effects. Further PT, to focus on increased aerobic exercise for emotional distress improvement as well as continue with strengthening for return to recreational activities. Posture: Pt has B rounded forward shoulders. ROM: UE ROM WFL Strength: LE MMT: Hip: flexion: B 4-/5, Ext: R 4/5, L 5/5, Abd: B 4+/5, Add: B 4/5. Knee: flexion: B 5/5, Ext: B 5/5. Ankle: PF: B 5/5, DF: B 4/5 Palpation: Pt is tender to palpation along the belly of the R rhomboid Special Tests: FACT-G Eval: PWB: , SWB: , EWB: 09/04, FWB: 12/09, Total Score: 57/108. FACT-G 10/24/17: PWB: 03/10, SWB: , EWB: , FWB: , Total Score: 60/108. FACT-G 12/22/17: PWB: , SWB: , EWB: 11/04, FWB: 03/10, Total Score: 58/108. Mobility: ECOG Performance Status: Grade 2 If you have any questions or concerns, please feel free to contact me at [phone]. Than you, Porsche Pinto, PT, DPT, CLT MTDD
[~2018-01-23 09:00] MED LIST changes: -ALTEPLASE RECOMB 2 MG VIAL IVP PRN; -D5W IVPB ONE; -DEXTROSE 5%(*) 100 ML BAG 100 ML IVPB PRN; -FLEXIBLE CONTAINER IV ONE; -GEMCITABINE IVPB ONE; -LIDOCAINE/SOD BICARB 8.4% SYR ID PRN; -METR-160 PO; +METR500T54 PO; -NS 0.9% IVPB ONE; -NS(*) 0.9% 100 ML BAG 100 ML IVPB PRN; -NS(*) 0.9% 250 ML BAG 250 ML IVPB PRN; -PALONOSETRON 0.25 MG/5 ML VIAL IVP SCH; -POTASSIUM CHL 20 MEQ TABCR PO ONE; -WATER FOR INJ,STERILE 20 ML IVP PRN; +[UNRECOGNIZED DRUG - CODE] PO; -[UNRECOGNIZED DRUG - OTHER] IV ONE; -[UNRECOGNIZED DRUG - OTHER] IVPB ONE
[2018-01-26] MEDS ORDERED: SERT-181 PO (14:56)
[2018-01-26] MEDS ORDERED: MIRT-27 PO (14:57)
== END 2018-01-29 ==
LOC: PT 09:00
PROVIDERS: ATTEND Internal Medicine Hematology
DX: C25.9 Malignant neoplasm of pancreas, unspecified (principal); R53.0 Neoplastic (malignant) related fatigue; G62.9 Polyneuropathy, unspecified; M54.5 Low back pain; B20 Human immunodeficiency virus [HIV] disease
CPT/HCPCS: 36415; 82040; 82247; 82310; 82374; 82378; 82435; 82565; 82947; 84075; 84132; 84155; 84295; 84450; 84460; 84520; 85025; 85027; 99212

== ENCOUNTER 2018-01-30 08:00 | Outpatient (RCR) | payer MEDICARE ==
[2018-01-02 12:28] VITALS: BP 124/80
[2018-01-02 12:49] LABS: PLATELET COUNT, AUTOMATED 270 K/uL (150-450)
[2018-01-09 13:02] VITALS: BP 129/87
[2018-01-09] MEDS: NS(*) 0.9% 500 ML BAG 500 ML IV PRN (13:30)
[2018-01-09] MEDS: HEPARIN FLSH (PORT) 500 UN/5ML IVP PRN (15:32)
--- NOTE | 2018-01-10 05:03 | ONCOLOGY FOLLOW UP NOTE ---
EVENT DATE: January 09, 2018 CHIEF COMPLAINT "I don't feel well." HISTORY OF PRESENT ILLNESS The patient is a 57-year-old male with metastatic pancreatic cancer with lung metastases. He currently is receiving treatment with Gemzar and Abraxane and was due to receive cycle #8 today. He presents with several complaints, including mild nausea without vomiting and some minimal changes in mentation. He feels "kind of out of it." He has lost approximately 3.5 kg in the past week. He is trying to eat and is taking Megace for this, but is having difficulty. He states he drinks water most of the days and then has resultant polyuria, so he is not sleeping well at night. He is scheduled for a CT scan in [place] on 01/27/18 and will follow up with Dr. Abad after that. He continues to complain of some subscapular discomfort on the left, which he suspects is from previous wedge resection. He denies any constipation or diarrhea. MEDICAL HISTORY 1. Metastatic pancreatic cancer, September 2017. 2. Type 2 diabetes. 3. HIV disease. SURGICAL HISTORY Wedge resection, September 2017. FAMILY HISTORY Paternal grandmother had pancreatic cancer. Family history is positive for heart disease, alcoholism, and pulmonary fibrosis. SOCIAL HISTORY Patient is single. 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 He is currently living with his mother and sister. He does not smoke or drink alcohol. REVIEW OF SYSTEMS A 12-point review of systems is performed and is negative except as stated above. PHYSICAL EXAMINATION VITAL SIGNS: Weight 54.7 kg, BP 129/87, P 60, R 14, temp 99.6. GENERAL: Patient is a well-developed but thin male in no acute distress. HEAD: Normocephalic, atraumatic. EYES: Sclerae anicteric. MOUTH: Mucous membranes are slightly dry, with no lesions or thrush. CARDIOVASCULAR: Heart rate regular, 60 per minute, without murmur, S3 or S4. LUNGS; Clear bilaterally. ABDOMEN: Soft and nontender, with active bowel sounds. EXTREMITIES: No edema. NEURO: Nonfocal. LABORATORY CBC today reveals a WBC of 6.5, hemoglobin 13.9, hematocrit 41.8, platelets 278,000. CMP showed a creatinine of 1.7, albumin 4.3, and calcium 12.4. IMPRESSION AND PLAN The patient is a 57-year-old male with metastatic pancreatic cancer. He presents to receive cycle 8 day 1 of Gemzar and Abraxane today. 1. Metastatic pancreatic cancer. Due to findings of hypercalcemia, treatment will be held. He is scheduled for restaging CT scan on 01/17/18 and will follow up with Dr. Abad on 01/18/18. 2. Hypercalcemia. Previous calcium was 10.9. Today, calcium is 12.4. Albumin is within normal limits. For this reason, he will be hydrated with 1L of normal saline. As above, chemotherapy will be held. 3. HIV disease. Well controlled on Prezista and Truvada. Viral load remains undetectable. Last CD4 count was 435. 4. Type 2 diabetes. On no medication. Fasting blood sugars have been <120. 5. Follow up on 01/12/18 for repeat CMP. Consideration will be given to bisphosphonate if indicated. He is instructed to call for any changes. 6. CT scan, 01/17/18. 7. Follow up with Dr. Abad on 01/18/18 for continued care. [facility]
[2018-01-12 12:51] VITALS: BP 125/89
[2018-01-12] MEDS: NS(*) 0.9% 500 ML BAG 500 ML IV PRN ×2 (13:40→14:46)
[2018-01-12] MEDS: HEPARIN FLSH (PORT) 500 UN/5ML IVP PRN (15:43)
[2018-01-16] MEDS: NS(*) 0.9% 500 ML BAG 500 ML IV PRN ×2 (12:15→13:08)
[2018-01-16 12:25] LABS: PLATELET COUNT, AUTOMATED 353 K/uL (150-450)
[2018-01-16] MEDS: HEPARIN FLSH (PORT) 500 UN/5ML IVP PRN (13:08)
[2018-01-23 13:02] VITALS: BP 138/98
[2018-01-23] MEDS: NS(*) 0.9% 500 ML BAG 500 ML IV PRN ×2 (13:10→14:11)
[2018-01-23 13:33] LABS: PLATELET COUNT, AUTOMATED 298 K/uL (150-450)
[2018-01-23] MEDS: HEPARIN FLSH (PORT) 500 UN/5ML IVP PRN (14:53)
--- NOTE | 2018-01-24 19:02 | ONCOLOGY FOLLOW UP NOTE ---
EVENT DATE: January 23, 2018 CHIEF COMPLAINT Patient presents for followup for metastatic pancreatic cancer. HISTORY OF PRESENT ILLNESS Patient is a 57-year-old male with metastatic pancreatic cancer with lung metastases. He completed seven cycles of Gemzar and Abraxane. He developed hypercalcemia and has been hydrated intermittently over the past two weeks. Most recent CT scan on 01/17/18 showed a mild increase in the pulmonary nodules. The pancreas was atrophic, but mass was not seen well as dye was not given. He has had renal insufficiency. CA19-9 has increased from [address] Abad is planning treatment with FOLFOX to begin on 01/30/18. He presents today and is overwhelmingly fatigued. He has had issues with nausea. He states he "never feels well." He had some "spots" on his lower extremities. Antifungal cream was recommended, and this has resolved. He recently saw his ID physician, Dr. Radha Carranza, and labs from there were reviewed. His appetite is poor, although he is trying to eat three small meals a day. Weight continues to decrease, close to 4 kg in the past month. ONCOLOGY HISTORY Diagnosed with pancreatic cancer in June 2017 with lung metastases present. Began neoadjuvant treatment with Gemzar and Abraxane on 06/27/17. Underwent wedge resection in September 2017 which showed lung metastases. He completed seven cycles of Gemzar and Abraxane with disease progression noted in the lungs and increase in the CA19-9. He is to begin FOLFOX on 01/30/18. MEDICAL HISTORY 1. Metastatic pancreatic cancer, September 2017. 2. Type 2 diabetes. 3. HIV disease. SURGICAL HISTORY Wedge resection, September 2017. FAMILY HISTORY Paternal grandmother had pancreatic cancer. Family history is positive for heart disease, alcoholism, and pulmonary fibrosis. SOCIAL HISTORY Patient is single. 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 He is currently living with his mother and sister. He does not smoke or drink alcohol. REVIEW OF SYSTEMS A 12-point review of systems is performed and is negative except as stated above. PHYSICAL EXAMINATION VITAL SIGNS: Weight 53.8 kg. BP 138/88, P 66, R 16, temp 98.3, O2 sat 97%. GENERAL: Patient is a well-developed, but ill-appearing male in no acute distress. HEAD: Normocephalic, atraumatic. EYES: Sclerae anicteric. MOUTH: Mucous membranes are slightly dry, but no lesions noted. CARDIOVASCULAR: Heart rate regular, 66 per minute, without murmur, S3, or S4. LUNGS; Clear bilaterally. ABDOMEN: Deferred due to nausea. EXTREMITIES: No edema. NEUROLOGIC: Nonfocal. LABORATORY CBC today reveals a WBC of 6.6, hemoglobin 13.8, hematocrit 41.6, platelets 298,000. CMP shows a potassium 3.1, BUN 23, creatinine 1.4, calcium 11.6. IMPRESSION AND PLAN The patient is a 57-year-old male with metastatic pancreatic cancer. 1. Metastatic pancreatic cancer. Patient's recent CT scan and tumor markers show progression in the lungs. For this reason, he will be scheduled to begin FOLFOX on 01/30/18. He will receive chemotherapy teaching at that visit. We spent some time discussing some issues associated with FOLFOX including the cold intolerance and neuropathy. 2. Hypercalcemia. Calcium on 01/09/18 was 12.4. He was hydrated vigorously; today's calcium is 11.6. He will again be hydrated with 1 L of normal saline today and at least three times this week. He will call us to make those appointments. 3. Hypokalemia. Potassium is 3.1 today. I have asked him to restart his potassium chloride and discussed high potassium foods. 4. HIV disease. He has an appointment with Dr. Carranza. His disease is well controlled on Prezista and Truvada. Laboratories are reviewed. Viral load remains undetectable. CD4 count was 618. 5. Type 2 diabetes. Last hemoglobin A1c on 01/13/18 was 6.5. He is on no medications. 6. Renal insufficiency. BUN and creatinine on 01/09/18 were [address] scan was done without dye. BUN and creatinine today have decreased slightly to 23 and 1.4. 7. Patient will call us to schedule his intravenous hydration. Labs including CBC and CMP will be checked on 01/26/18. 8. Follow up on 01/30/18 for cycle #1 of FOLFOX. MTDD
[2018-01-26 14:05] LABS: PLATELET COUNT, AUTOMATED 227 K/uL (150-450)
[2018-01-26 15:13] VITALS: BP 142/85
[2018-01-26] MEDS: HEPARIN FLSH (PORT) 500 UN/5ML IVP PRN (15:13)
--- NOTE | 2018-01-28 16:09 | ONCOLOGY FOLLOW UP NOTE ---
EVENT DATE: January 26, 2018 CHIEF COMPLAINT Followup for metastatic pancreatic cancer. HISTORY OF PRESENT ILLNESS Patient is a 57-year-old male with metastatic pancreatic cancer with lung metastases. He completed seven cycles of Gemzar and Abraxane. He developed hypercalcemia and has been hydrated intermittently. Most recent CT scan on 01/17/18 showed a mild increase in the pulmonary nodules. Dr. Abad plans to switch treatment to FOLFOX which is scheduled to begin on 01/30/18. However, he presents today in a further weakened condition. He is very fatigued and states he "never feels well." He is concerned about treatment with FOLFOX as he feels so weak. He is not eating well and continues to lose weight. He required assistance to walk into the chemo room today. ONCOLOGY HISTORY Diagnosed with pancreatic cancer in June 2017 with lung metastases present. Began neoadjuvant treatment with Gemzar and Abraxane on 06/27/17. Underwent wedge resection in September 2017 which showed lung metastases. He completed seven cycles of Gemzar and Abraxane with disease progression noted in the lungs and increase in the CA19-9. He is to begin FOLFOX on 01/30/18. MEDICAL HISTORY 1. Metastatic pancreatic cancer, September 2017. 2. Type 2 diabetes. 3. HIV disease. SURGICAL HISTORY Wedge resection, September 2017. FAMILY HISTORY Paternal grandmother had pancreatic cancer. Family history is positive for heart disease, alcoholism, and pulmonary fibrosis. SOCIAL HISTORY Patient is single. 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 He is currently living with his mother and sister. He does not smoke or drink alcohol. REVIEW OF SYSTEMS A 12-point review of systems is performed and is negative except as stated above. PHYSICAL EXAMINATION VITAL SIGNS: Weight is not taken. BP 142/85, P 74, R 16, temp 99.0, O2 sat 92%. GENERAL: Patient is a well-developed, but ill-appearing, thin male in no acute distress. HEAD: Normocephalic, atraumatic. Temporal wasting noted. EYES: Sclerae anicteric. MOUTH: Mucous membranes are dry. No lesions noted. CARDIOVASCULAR: Heart rate regular, 74 per minute. LUNGS: Diminished, but clear bilaterally. EXTREMITIES: No edema. NEUROLOGIC: Nonfocal. LABORATORY CBC today reveals a WBC of 8.0, hemoglobin 13.7, hematocrit 41.7, platelets 227,000. CMP shows a slightly decreased potassium of 3.1, BUN 23, creatinine 1.5, calcium 11.5, magnesium 2.3, phosphorus 2.6. IMPRESSION AND PLAN The patient is a 57-year-old male with metastatic pancreatic cancer. 1. Metastatic pancreatic cancer. Patient is seen today. He will receive IV hydration. He is scheduled to begin FOLFOX on 01/30/18, but is very concerned and "scared." He appears to be in a much weaker condition and has continued to lose weight. 2. Hypercalcemia. Calcium today is 11.5. He will be hydrated with 1 L of normal saline. 3. Hypokalemia. Potassium has improved from 3.1 to 3.4. He continues potassium chloride and is trying to each higher potassium foods. 4. HIV disease. Disease is well controlled on Prezista and Truvada. Viral load remains undetectable. Last CD4 count was 618. 5. Type 2 diabetes. Last hemoglobin A1c was 6.5. He is on no medication. 6. Renal insufficiency. BUN and creatinine are 23 and 1.5 today. As above, he will be hydrated with 1 L of normal saline. 7. End of life care. I spent a total of 45 minutes with Alban and his sister today. We discussed hospice care, and I have offered to have them come to their home for an informational visit. At this point, he would like to hold off as he feels strongly about trying treatment. Supportive counseling given for both the patient and his sister. We will continue to discuss this. 8. Follow up on 01/30/18 for cycle #1 of FOLFOX. This will likely be given at a dose reduction due to his current status. MTDD
[~2018-01-30] VITALS: Ht 173.4 cm; Wt 53.8 kg
[~2018-01-30 08:00] MED LIST changes: +ALTEPLASE RECOMB 2 MG VIAL IVP PRN; +DEXTROSE 5%(*) 100 ML BAG 100 ML IVPB PRN; +LIDOCAINE/SOD BICARB 8.4% SYR ID PRN; +MIRT-27 PO; +NS(*) 0.9% 100 ML BAG 100 ML IVPB PRN; +NS(*) 0.9% 1000 ML BAG 1,000 ML IV PRN; +PROMETHAZINE 25 MG/ML 1 ML AMP IVP ONE; +SERT-181 PO; +WATER FOR INJ,STERILE 20 ML IVP PRN
[2018-01-30 08:20] VITALS: BP 127/93
[2018-01-30] MEDS ORDERED: NS(*) 0.9% 1000 ML BAG 1,000 ML IV ONE (08:55)
[2018-01-30] MEDS: NS(*) 0.9% 500 ML BAG 500 ML IV PRN (09:14)
[2018-01-30] MEDS: HEPARIN FLSH (PORT) 500 UN/5ML IVP PRN (10:37)
--- NOTE | 2018-01-31 04:22 | ONCOLOGY FOLLOW UP NOTE ---
EVENT DATE: January 30, 2018 CHIEF COMPLAINT Presents to initiate treatment with Folfox. HISTORY OF PRESENT ILLNESS Patient is a 57-year-old male with metastatic pancreatic cancer with lung metastases. He completed seven cycles of Gemzar and Abraxane. Since then, he has developed hypercalcemia and required intermittent hydration. CT scan on 01/17/18 showed a mild increase in the pulmonary nodules, and CA19-[address] Abad was planning to switch him to Folfox, and he was to receive cycle #1 today. However, he presents in a much weaker condition. He is fatigued. He feels poorly all the time. He does have some lower abdominal discomfort. He is not eating well and continues to lose weight. He required assistance to walk into the chemo room today. ONCOLOGY HISTORY Diagnosed with pancreatic cancer in June 2017 with lung metastases present. Began neoadjuvant treatment with Gemzar and Abraxane on 06/27/17. Underwent wedge resection in September 2017 which showed lung metastases. He completed seven cycles of Gemzar and Abraxane with disease progression noted in the lungs and increase in the CA19-9. He is to begin FOLFOX on 01/30/18. MEDICAL HISTORY 1. Metastatic pancreatic cancer, September 2017. 2. Type 2 diabetes. 3. HIV disease. SURGICAL HISTORY Wedge resection, September 2017. FAMILY HISTORY Paternal grandmother had pancreatic cancer. Family history is positive for heart disease, alcoholism, and pulmonary fibrosis. SOCIAL HISTORY Patient is single. 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 He is currently living with his mother and sister. He does not smoke or drink alcohol. REVIEW OF SYSTEMS A 12-point review of systems is performed and is negative except as stated above. PHYSICAL EXAMINATION VITAL SIGNS: Weight 53.8 kg, BP 127/93, P 108, R 16, temp 99.4, O2 sat 95%. GENERAL: Patient is a well-developed, ill-appearing male in no acute distress. HEAD: Normocephalic, atraumatic. Temporal wasting evident. EYES: Sclerae anicteric. MOUTH: Mucous membranes are dry. CARDIOVASCULAR: Heart rate regular, slightly tachycardic at 108 per minute, without murmur. LUNGS: Diminished but clear. EXTREMITIES: No edema. NEUROLOGIC: Nonfocal. LABORATORY CBC today reveals a WBC of 7.0, hemoglobin 13.9, hematocrit 41.8, platelets 240,000. IMPRESSION AND PLAN The patient is a 57-year-old male with metastatic pancreatic cancer. 1. Metastatic pancreatic cancer. Alban presents today for consideration of cycle #1 for FOLFOX. His mother accompanies him. Due to his overall condition, we discussed that this would not be in his best interest. Our goal was to keep him as comfortable as possible. I spent a total of 45 minutes with Alban and his sister last week, and we talked about hospice care. Our nurses and myself met with patient and his mother for 60 minutes. They both understand the benefit of hospice care, and Alban states that he is too weak to be able to take chemotherapy at this time. Our case management social worker, Katrina, also met with the patient and his mom today. [facility] will be arranged to admit him today. I have asked him to discuss his abdominal discomfort with them once he is seen. 2. Follow up as needed for continued care. Both Alban and his mom were in agreement with this plan. MTDD
== END 2018-02-08 08:59 | disposition home or self-care (01) ==
LOC: ONC 08:00
PROVIDERS: ATTEND Internal Medicine
DX: C25.9 Malignant neoplasm of pancreas, unspecified (principal); C78.00 Secondary malignant neoplasm of unspecified lung; E83.52 Hypercalcemia; B20 Human immunodeficiency virus [HIV] disease; E11.9 Type 2 diabetes mellitus without complications
CPT/HCPCS: 36415; 36591; 82306; 82652; 83735; 83970; 84100; 85025; 85027; 86301; 96360; 96361; G0463; J1642; J2550; J7030; J7040; 82040; 82247; 82310; 82374; 82435; 82565; 82947; 84075; 84132; 84155; 84295; 84450; 84460; 84520; 99212